=== PATIENT | female | born 1990 | race Caucasian/White ===

== ENCOUNTER → 2020-10-08 13:52 | Outpatient (BNVA) | payer OTHER, SELFPAY | PROVIDERS: PCP Internal Medicine ==

== ENCOUNTER 2020-10-28 07:32 | Day surgery (SDC) | payer OTHER, SELFPAY ==
[2020-10-18 16:51] VITALS: BMI 33.2
--- NOTE | 2020-10-25 14:03 | HO.ANESPROP2 ---
Documented by User: Helen Acevedo NP 10/25/20 14:21 HPI - Anesthesia Eval Consult details Narrative: 29yo F for Insertion Suprapubic Tube Spina bifida. Paraplegia. Chiari malformation with OUTREACH MANAGER shunt. No recent neuro imaging. [facility] ED or admission for atypical CP/UTI. Cardiac etiology r/o. Case reviewed with Dr Garcia. OK to proceed. [facility], [facility] Active Problems Active Problems: All Active Problems (Updated 10/21/20 @ 11:38 by Ann Landin RN) Neurogenic bladder (Acute) Past Medical History Medical History (Updated 10/21/20 @ 11:38 by Ann Landin RN) Able to perform intermittent urethral self-catheterization Arnold-Chiari malformation Diabetes López catheter present Hepatic steatosis History of infection with vancomycin resistant Enterococcus (VRE) Hx of exertional chest pain Nausea Neurogenic bladder Paraplegia Recurrent UTI (urinary tract infection) Scoliosis, congenital Sleep apnea in adult Spina bifida Splenomegaly Surgical History Surgical History (Updated 10/18/20 @ 16:53 by Ann Ladnin RN) Hx of cholecystectomy Hx of ovarian cystectomy Hx of spinal surgery S/P OUTREACH MANAGER shunt Social History Social History Patient Tobacco Use Status: Never used Tobacco Are you DNR?: No Advance Directives: No Advance Directives Information Provided: No Advance Directives on File: No Patient : No FDLMP: 09/16/2020 Meds Allergies Allergy/AdvReac Type Severity Reaction Status Date / Time Latex, Natural Rubber AdvReac Intermediate itchy Verified 10/18/20 16:36 Home Medications Medication Instructions Recorded Confirmed Last Taken Type baclofen 10 mg tablet 10 mg PO TID 10/08/20 10/28/20 10/28/20 06:00 History cholecalciferol (vitamin D3) 10 10 mcg PO DAILY 10/08/20 10/18/20 Unknown History mcg (400 unit) capsule dulaglutide 0.75 mg/0.5 mL 0.75 mg SUBCUT QWEEK 10/08/20 10/18/20 Unknown History subcutaneous pen injector glipizide 5 mg tablet 5 mg PO DAILY 10/08/20 10/18/20 Unknown History multivitamin 1 tab PO DAILY 10/08/20 10/18/20 Unknown History ondansetron 4 mg disintegrating 4 mg PO Q8H 10/08/20 10/18/20 Unknown History tablet oxycodone 5 mg tablet 5 mg PO Q6H PRN 10/18/20 10/18/20 Unknown History Exam Exam Date and Time: October 25, 2020 1403 Height,Weight and Vital Signs: Height 5 ft Weight 77.111 kg Pertinent Lab Results Pertinent Lab Results: 10/01/20 WBC 14.6 (H) HGB 10.3 (L) HCT 35.1 PLT 469 (H) NA 136 K 4.1 CL 101 CO2 26 BUN 9 Creat 0.29 (L) Ca 8.8 Narrative Narrative: EKG 09/2020 NSR with SA @ 76 Assessment and Plan Assessment Anesthesia Assessment: Chart Reviewed Documented by User: Rosalva Mccoy MD 10/28/20 09:15 PMF Past Medical History Medical History (Updated 10/21/20 @ 11:38 by Ann Landin, TRAM) Able to perform intermittent urethral self-catheterization Arnold-Chiari malformation Diabetes López catheter present Hepatic steatosis History of infection with vancomycin resistant Enterococcus (VRE) Hx of exertional chest pain Nausea Neurogenic bladder Paraplegia Recurrent UTI (urinary tract infection) Scoliosis, congenital Sleep apnea in adult Spina bifida Splenomegaly Family History Family history of problems with anesthesia: No Surgical History Surgical History (Updated 10/18/20 @ 16:53 by Ann Landin, RN) Hx of cholecystectomy Hx of ovarian cystectomy Hx of spinal surgery S/P OUTREACH MANAGER shunt History of Problems with Anesthesia: No Social History Social History Patient Tobacco Use Status: Never used Tobacco Are you DNR?: No Advance Directives: No Advance Directives Information Provided: No Advance Directives on File: No Patient : No FDLMP: 09/16/2020 Meds Allergies Allergy/AdvReac Type Severity Reaction Status Date / Time Latex, Natural Rubber AdvReac Intermediate itchy Verified 10/18/20 16:36 Home Medications Medication Instructions Recorded Confirmed Last Taken Type baclofen 10 mg tablet 10 mg PO TID 10/08/20 10/28/20 10/28/20 06:00 History cholecalciferol (vitamin D3) 10 10 mcg PO DAILY 10/08/20 10/18/20 Unknown History mcg (400 unit) capsule dulaglutide 0.75 mg/0.5 mL 0.75 mg SUBCUT QWEEK 10/08/20 10/18/20 Unknown History subcutaneous pen injector glipizide 5 mg tablet 5 mg PO DAILY 10/08/20 10/18/20 Unknown History multivitamin 1 tab PO DAILY 10/08/20 10/18/20 Unknown History ondansetron 4 mg disintegrating 4 mg PO Q8H 10/08/20 10/18/20 Unknown History tablet oxycodone 5 mg tablet 5 mg PO Q6H PRN 10/18/20 10/18/20 Unknown History Exam Height,Weight and Vital Signs: Height 5 ft Weight 77.111 kg Vital Signs Temp Pulse Resp BP Pulse Ox 10/28/20 08:02 98.3 F 90 16 115/91 H 97 Pertinent Lab Results Pertinent Lab Results: 10/01/20 WBC 14.6 (H) HGB 10.3 (L) HCT 35.1 PLT 469 (H) NA 136 K 4.1 CL 101 CO2 26 BUN 9 Creat 0.29 (L) Ca 8.8 Lab Results 10/28/20 Range/Units 08:09 POC Glucose 289 H (60-115) mg/dL Airway Mallampati Class: III TM Dist: >3cm (Short fat neck. In flexion) Neck ROM: Limited Heart: RRR Lungs: CTAB Assessment and Plan Assessment Anesthesia Assessment: Anesthesia Plan Discussed Final Anesthetic Review Family History of Problems with Anesthesia: No History of Problems with Anesthesia: No NPO: Yes ASA Class: III Final Preanesthetic Review: No Changes in Pt Med Stat, Meds/Allgs Chart Reviewed, Consent Obtained/Reviewed and Anes Risks/Benef Reviewed Patient Risk: Intermediate Procedure Risk: Low Assessment/Block/Sedation in SS: Assess/Block/Sedation-SS Anesthetic Plan Anesthetic Plan: GA Disposition: Standard PACU
[2020-10-28] VITALS (7 sets, daily range): BP systolic 115–121; BP diastolic 78–91; PULSE 84–91; RESP 10–16; TEMP 36.8–37.1; O2SAT 97–99
[2020-10-28] MEDS: levoFLOXacin 500 MG TABLET PO (08:07)
[2020-10-28 08:14] LABS: Glucose, Whole Blood 289 mg/dL (60-115)
[2020-10-28] MEDS: Lactated Ringers 1,000 ML 100 ML IVCONT (08:51)
--- NOTE | 2020-10-28 09:21 | MHC.SHP ---
Pre-Procedural Eval Section A Date of Service: 10/28/20 Section B Chief Complaint: Dysfunction of Bladder Details of Present Illness: longstanding neurogenic bladder Relevant Family History (Specify if Yes): No Relevant Social History: None Present Medications: see Short Stay Collaborative assessment Medical History: Significant History History of Previous Operations: No relevant previous surgery Allergies: Allergies Allergy/AdvReac Type Severity Reaction Status Date / Time Latex, Natural Rubber AdvReac Intermediate itchy Verified 10/18/20 16:36 Review of Systems Sugical H&P ROS: Negative: Constitution, Cardiovascular, Respiratory, Neurological, Psychiatric, Hem-Onc, Allergic/Immunologic, Gastrointestinal, Genitourinary, Musculoskeletal, Integumentary, Endocrine and Eyes/Ears/Nose/Throat Exam Surgical H&P Exam: Normal: HEENT, Normal: Heart, Normal: Lungs, Normal: Extremities, Normal: Abdomen, Normal: Skin and Normal: Neurological Plan Diagnosis/Plan: Unchanged (Cystoscopy with suprapubic tube placement) I have reviewed the history and physical and performed a pertinent physical examination on my patient. No changes have occurred unless specified.
--- NOTE | 2020-10-28 09:58 | P.OP_ITS ---
Operative Note Operative Note Date of Service: 10/28/20 Narrative: PreOperative Diagnosis:?neurogenic bladder Post Operative Diagnosis:?neurogenic bladder Procedure:? 1. Cystoscopy 2. Suprapubic tube placement Surgeon: Dr Jeff Verduzco Anesthesia:?Sedation plus local Indications for procedure: A pleasant 29-year-old with spina bifida. Significant spinal deformation with neurogenic bladder and recurrent UTIs with incomplete emptying. Procedure: After informed consent was verified the patient was brought to the operating room and placed in a supine position.? Anesthesia was administered per protocol. The patient was placed in a modified dorsal lithotomy position and prepped and draped in a sterile fashion. A safety pause was performed confirming patient identity, procedure and antibiotics. A 22 Mongolian cystoscope was inserted per urethra. Bladder was examined in its entirety. No abnormalities seen. Air bubble was located at the dome of the bladder. A finder needle was inserted 2 fingerbreaths above the symphysis pubis on the abdomen into the bladder.? The needle was visualized in the bladder via cystoscopy. Local anesthetic was infiltrated subcutaneously around the needle introduction site. A small, 1cm horizontal incision was made.? A trocar introducer was advanced through the abdominal wall into the bladder under visualization. The obturator was removed and a 16 Fr tapia catheter placed. 7cc was used to inflate the balloon. The external portion of the trocar was removed. Dressing was placed, the bladder was emptied, and a drainage bag was attached. The patient tolerated the procedure and was transferred in stable condition to the recovery area. Suprapubic tube will be changed in 1 month with a follow-up office visit.
[2020-10-28] MEDS: oxyCODONE HCl Immed Release 5 MG TABLET PO (10:36)
== END 2020-10-28 11:30 | disposition home or self-care (01) ==
PROVIDERS: PCP Internal Medicine; Visit Provider Urology
PROC: (CPT 51102; principal; 2020-10-28 09:00)
DX: N31.9 Neuromuscular dysfunction of bladder, unspecified (principal); Q07.01 Arnold-Chiari syndrome with spina bifida; N39.0 Urinary tract infection, site not specified; R33.9 Retention of urine, unspecified; G82.20 Paraplegia, unspecified; Z98.2 Presence of cerebrospinal fluid drainage device; Z99.3 Dependence on wheelchair; E11.9 Type 2 diabetes mellitus without complications; Z79.84 Long term (current) use of oral hypoglycemic drugs
CPT/HCPCS: 51040; 82947; J2370; J3010

== ENCOUNTER → 2020-11-28 15:12 | Outpatient (BNVA) | payer OTHER, SELFPAY | PROVIDERS: PCP Internal Medicine; Visit Provider Urology | DX: N31.9 Neuromuscular dysfunction of bladder, unspecified (principal) | CPT/HCPCS: 51705; 99212 ==

== ENCOUNTER → 2020-12-27 14:11 | Outpatient (BNVA) | payer OTHER, SELFPAY | PROVIDERS: PCP Internal Medicine; Visit Provider Urology | DX: N31.9 Neuromuscular dysfunction of bladder, unspecified (principal) | CPT/HCPCS: 51705 ==

== ENCOUNTER → 2021-01-28 14:09 | Outpatient (BNVA) | payer OTHER, SELFPAY | PROVIDERS: PCP Internal Medicine; Visit Provider Urology | DX: N31.9 Neuromuscular dysfunction of bladder, unspecified (principal) | CPT/HCPCS: 51705 ==

== ENCOUNTER → 2021-02-26 14:19 | Outpatient (BNVA) | payer OTHER, SELFPAY | PROVIDERS: PCP Internal Medicine; Visit Provider Urology | DX: N31.9 Neuromuscular dysfunction of bladder, unspecified (principal) | CPT/HCPCS: 51705 ==

== ENCOUNTER → 2021-03-27 15:06 | Outpatient (BNVA) | payer OTHER, SELFPAY | PROVIDERS: PCP Internal Medicine; Visit Provider Urology | DX: N31.9 Neuromuscular dysfunction of bladder, unspecified (principal) | CPT/HCPCS: 51705 ==

== ENCOUNTER → 2021-04-24 15:21 | Outpatient (BNVA) | payer OTHER, SELFPAY | PROVIDERS: PCP Internal Medicine; Visit Provider Urology | DX: N31.9 Neuromuscular dysfunction of bladder, unspecified (principal) | CPT/HCPCS: 51705 ==

== ENCOUNTER → 2021-11-28 14:11 | Outpatient (BNVA) | payer OTHER, SELFPAY | PROVIDERS: PCP Internal Medicine; Visit Provider Urology | DX: N31.9 Neuromuscular dysfunction of bladder, unspecified (principal) | CPT/HCPCS: 51705; 51710; 99212 ==

== ENCOUNTER → 2021-12-31 14:04 | Outpatient (BNVA) | payer OTHER, SELFPAY | PROVIDERS: PCP Internal Medicine; Visit Provider Urology | DX: N31.9 Neuromuscular dysfunction of bladder, unspecified (principal) | CPT/HCPCS: 51705 ==

== ENCOUNTER → 2022-01-22 10:44 | Outpatient (BNVA) | payer OTHER, SELFPAY | PROVIDERS: PCP Internal Medicine; Visit Provider Urology | DX: N31.9 Neuromuscular dysfunction of bladder, unspecified (principal) | CPT/HCPCS: 51705 ==

== ENCOUNTER → 2022-02-19 13:14 | Outpatient (BNVA) | payer OTHER, SELFPAY | PROVIDERS: PCP Internal Medicine; Visit Provider Urology | DX: Z43.5 Encounter for attention to cystostomy (principal); N31.9 Neuromuscular dysfunction of bladder, unspecified | CPT/HCPCS: 51705 ==

== ENCOUNTER → 2022-03-19 13:18 | Outpatient (BNVA) | payer OTHER, SELFPAY | PROVIDERS: PCP Internal Medicine; Visit Provider Urology | DX: N31.9 Neuromuscular dysfunction of bladder, unspecified (principal) | CPT/HCPCS: 51705 ==

== ENCOUNTER → 2022-03-27 15:04 | Outpatient (BNVA) | payer OTHER, SELFPAY | PROVIDERS: PCP Internal Medicine; Visit Provider Urology | DX: N99.518 Other cystostomy complication (principal); L92.9 Granulomatous disorder of the skin and subcutaneous tissue, unspecified; N31.9 Neuromuscular dysfunction of bladder, unspecified | CPT/HCPCS: 99212 ==

== ENCOUNTER → 2022-04-16 14:32 | Outpatient (BNVA) | payer OTHER, SELFPAY | PROVIDERS: PCP Internal Medicine; Visit Provider Urology | DX: L92.9 Granulomatous disorder of the skin and subcutaneous tissue, unspecified (principal); N31.9 Neuromuscular dysfunction of bladder, unspecified; Z46.6 Encounter for fitting and adjustment of urinary device; Z96.0 Presence of urogenital implants | CPT/HCPCS: 99212 ==

== ENCOUNTER → 2022-05-14 13:45 | Outpatient (BNVA) | payer OTHER, SELFPAY | PROVIDERS: PCP Internal Medicine; Visit Provider Urology | DX: Z43.5 Encounter for attention to cystostomy (principal); N31.9 Neuromuscular dysfunction of bladder, unspecified | CPT/HCPCS: 51705 ==

== ENCOUNTER → 2022-05-18 15:02 | Outpatient (BNVA) | payer OTHER, SELFPAY | PROVIDERS: PCP Internal Medicine; Visit Provider Urology | DX: Z43.5 Encounter for attention to cystostomy (principal); N31.9 Neuromuscular dysfunction of bladder, unspecified | CPT/HCPCS: 51700 ==

== ENCOUNTER → 2022-06-11 13:23 | Outpatient (BNVA) | payer OTHER, SELFPAY | PROVIDERS: PCP Internal Medicine; Visit Provider Urology | DX: N31.9 Neuromuscular dysfunction of bladder, unspecified (principal) | CPT/HCPCS: 51705 ==

== ENCOUNTER → 2022-07-09 15:00 | Outpatient (BNVA) | payer OTHER, SELFPAY | PROVIDERS: PCP Internal Medicine; Visit Provider Urology | DX: Z43.5 Encounter for attention to cystostomy (principal); N31.9 Neuromuscular dysfunction of bladder, unspecified | CPT/HCPCS: 51700; 51705 ==

== ENCOUNTER → 2022-08-06 14:24 | Outpatient (BNVA) | payer OTHER, SELFPAY | PROVIDERS: PCP Internal Medicine; Visit Provider Urology | DX: N31.9 Neuromuscular dysfunction of bladder, unspecified (principal) | CPT/HCPCS: 51705 ==

== ENCOUNTER → 2022-09-03 14:22 | Outpatient (BNVA) | payer OTHER, SELFPAY | PROVIDERS: PCP Internal Medicine; Visit Provider Urology | DX: N31.9 Neuromuscular dysfunction of bladder, unspecified (principal) | CPT/HCPCS: 51705 ==

== ENCOUNTER → 2022-10-01 15:10 | Outpatient (BNVA) | payer OTHER, SELFPAY | PROVIDERS: PCP Internal Medicine; Visit Provider Urology | DX: N31.9 Neuromuscular dysfunction of bladder, unspecified (principal) | CPT/HCPCS: 51705 ==

== ENCOUNTER 2022-10-21 14:46 | Outpatient (AMB) | payer OTHER, SELFPAY ==
--- NOTE | 2022-10-21 15:25 | A.OFFVIS_ITS ---
Intake Intake Visit Reasons: 6m follow up/STP change Intake Note: Patient is present for Follow Up Urology Med: Oxybutynin Antibiotic Allergy: None Blood Thinner: None Pharmacy: [facility] Allergies Latex, Natural Rubber Adverse Reaction (Intermediate, Verified 11/27/21 16:20) itchy HPI HPI Comments History of Present Illness Details Norma is a very pleasant female. 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 Use of overnight bag for drainage. Will start methenamine with vitamin-C for suppression They are extremely happy with the current situation and their ability to manage the daughters bladder emptying FORMERLY [facility] Medical History Able to perform intermittent urethral self-catheterization Arnold-Chiari malformation Diabetes López catheter present Hepatic steatosis History of infection with vancomycin resistant Enterococcus (VRE) Hx of exertional chest pain Nausea Neurogenic bladder Paraplegia Recurrent UTI (urinary tract infection) Scoliosis, congenital Sleep apnea in adult Spina bifida Splenomegaly Surgical History Hx of cholecystectomy Hx of ovarian cystectomy Hx of spinal surgery S/P K 9 POLICE OFFICER shunt Social History Patient Tobacco Use Status: Never used Tobacco Review of Systems Const Denies chills and Denies fever(s) Card Reports no additional complaints and Denies syncope Resp Denies cough GI Denies abdominal pain and Denies heartburn Reports as per HPI and Denies change in libido Neuro Denies syncope Psych Denies change in libido Endo Denies change in libido Physical Exam Const General: cooperative, healthy appearing, comfortable and no acute distress Orientation/consciousness: patient oriented x3 HEENT Face and sinus: Yes normal facial exam Mouth: moist mucous membranes Neck Neck: Yes normal visual inspection, Yes full ROM and Yes trachea midline Chest Chest palpation & inspection: normal inspection of the chest Resp Effort & Inspection: normal respiratory effort, able to speak in complete sentences and no respiratory distress GI Inspection: Yes normal to inspection Back/Spine/Pelvis Cervical Spine: normal cervical lordosis Thoracic/Lumbar Spine: thoracic and lumbar spine normal to inspection Skin General skin exam: no rashes or lesions noted Neuro General: patient oriented x3, gait normal, tone normal and moves all extremities Extrem General: Yes normal to inspection and Yes capillary refill normal Office Procedures Bladder/Catheter Procedure Details: 18 fr pooja cath 7.5 ml balloon replaced with new 18 fr pooja cath w 7.5 mls balloon and blue plug. Pt tolerated exchange well. 08122-Rxzbus of bladder tube Procedure code (CPT) selection complete Assessment & Plan Assessment & Plan (1) Neurogenic bladder: Comment: Suprapubic tube placed October 2020 Code(s): N31.9 - Neuromuscular dysfunction of bladder, unspecified Plan Continue monthly changes, six-month follow-up Orders: Orders AMB Bladder/Catheter Procedure Today N31.9 - Neuromuscular dysfunction of bladder, unspecified Patient Instructions: Imaging studies, laboratory and physical exam results were discussed and reviewed in detail. No major barriers to patient understanding were identified. An opportunity to ask questions regarding the treatment plan was provided. All questions were answered. The patient expressed understanding and agreement with the above treatment plan. The patient is aware they should contact our office by phone for worsening of their current condition or the appearance of new urologic symptoms. Compliance is encouraged with any medications and followup testing that is ordered. It is a privilege to participate in the urologic care of your patient. If you have any questions or concerns regarding treatment for the above conditions, or other urologic issues, please do not hesitate to contact me. The office telephone contact is [phone]. This note is constructed using voice recognition software. While every effort has been made to ensure accuracy adaptive physical education specialist errors may have been included. Yours sincerely, Dr Jeff Verduzco MD, [facility] - Urology Providers of Expert, Compassionate Care for the Genitourinary System Coding Level of Care Code Est Pt Level 3 (49524) Diagnoses Neurogenic bladder N31.9 CPT Codes Bladder/Catheter Procedure - CPT: 64092-Cquyyq of bladder tube ([id number])
== END 2022-10-21 15:44 | disposition home or self-care (01) ==
PROVIDERS: PCP Internal Medicine; Visit Provider Urology
DX: N31.9 Neuromuscular dysfunction of bladder, unspecified (principal)
CPT/HCPCS: 51705; 99213

== ENCOUNTER → 2022-10-21 14:46 | Outpatient (BNVA) | payer OTHER, SELFPAY | PROVIDERS: Visit Provider Urology | DX: N31.9 Neuromuscular dysfunction of bladder, unspecified (principal) | CPT/HCPCS: 51705; 99212 ==

== ENCOUNTER → 2022-11-18 15:26 | Outpatient (BNVA) | payer OTHER, SELFPAY | PROVIDERS: PCP Internal Medicine; Visit Provider Urology | DX: N31.9 Neuromuscular dysfunction of bladder, unspecified (principal) | CPT/HCPCS: 51705 ==

== ENCOUNTER → 2022-12-16 15:52 | Outpatient (BNVA) | payer OTHER, SELFPAY | PROVIDERS: PCP Internal Medicine; Visit Provider Urology | DX: N31.9 Neuromuscular dysfunction of bladder, unspecified (principal) | CPT/HCPCS: 51705 ==

== ENCOUNTER → 2023-01-13 16:00 | Outpatient (BNVA) | payer OTHER, SELFPAY | PROVIDERS: PCP Internal Medicine; Visit Provider Urology | DX: N31.9 Neuromuscular dysfunction of bladder, unspecified (principal) | CPT/HCPCS: 51705 ==

== ENCOUNTER → 2023-02-10 15:08 | Outpatient (BNVA) | payer OTHER, SELFPAY | PROVIDERS: PCP Internal Medicine; Visit Provider Urology | DX: N13.9 Obstructive and reflux uropathy, unspecified (principal) | CPT/HCPCS: 51705 ==

== ENCOUNTER → 2023-03-10 15:22 | Outpatient (BNVA) | payer OTHER, SELFPAY | PROVIDERS: PCP Internal Medicine; Visit Provider Urology | DX: N31.9 Neuromuscular dysfunction of bladder, unspecified (principal) | CPT/HCPCS: 51705 ==

== ENCOUNTER → 2023-04-07 15:22 | Outpatient (BNVA) | payer OTHER, SELFPAY | PROVIDERS: PCP Internal Medicine; Visit Provider Urology | DX: Z43.5 Encounter for attention to cystostomy (principal); N31.9 Neuromuscular dysfunction of bladder, unspecified | CPT/HCPCS: 51705 ==

== ENCOUNTER 2023-04-21 | Outpatient (REF) | payer OTHER, SELFPAY ==
[2023-04-22 15:29] LABS: Appearance Urine Cloudy; Color Urine Dark Yellow; Glucose Urine UA 500 mg/dL (Negative); Leukocyte Esterase Urine Moderate (2+) (Negative); Nitrite Urine Positive (Negative); PH 7.5 (5.0-9.0); Specific Gravity - Urine 1.025 (1.005-1.025); UMIC TRIGGER UA YES; Urine Blood Large (3+) (Negative); Urine Ketones Negative (Negative); Urine Protein 30 (1+) mg/dL (Neg-Trace)
[2023-04-22 15:34] LABS: Bacteria Urine 4+ (None Seen); Hyaline Casts Urine 0-2 /LPF (0-2); RBC Urine >20 /HPF (0-2); Squamous Epithelial Cell Urine 0-2 /HPF (0-2); WBC Urine >50 /HPF (0-5)
== END 2023-04-21 00:01 | disposition home or self-care (01) ==
LOC: HO.LNP
PROVIDERS: Visit Provider Urology
DX: N31.9 Neuromuscular dysfunction of bladder, unspecified (principal)
CPT/HCPCS: 81001; 87086; 87088; 87186

== ENCOUNTER → 2023-04-29 14:20 | Outpatient (BNVA) | payer OTHER, SELFPAY | PROVIDERS: PCP Internal Medicine; Visit Provider Urology | DX: N31.9 Neuromuscular dysfunction of bladder, unspecified (principal) | CPT/HCPCS: 51705 ==

== ENCOUNTER → 2023-06-02 15:26 | Outpatient (BNVA) | payer OTHER, SELFPAY | PROVIDERS: PCP Internal Medicine; Visit Provider Urology | DX: N31.9 Neuromuscular dysfunction of bladder, unspecified (principal) | CPT/HCPCS: 51705 ==

== ENCOUNTER → 2023-06-30 15:42 | Outpatient (BNVA) | payer OTHER, SELFPAY | PROVIDERS: PCP Internal Medicine; Visit Provider Urology | DX: N31.9 Neuromuscular dysfunction of bladder, unspecified (principal) | CPT/HCPCS: 51705 ==

== ENCOUNTER 2023-07-28 15:12 | Outpatient (AMB) | payer OTHER, SELFPAY ==
--- NOTE | 2023-07-28 15:20 | A.OFFVIS_ITS ---
Intake Visit Reasons: 6m/cath change Intake Note: Patient is present for Follow Up Cath Change Urology Med: None Antibiotic Allergy: None Blood Thinner: None Pharmacy: [facility] Tester Wafer Substrate Required: No Accompanied by: Self / Same As Patient Allergies Latex, Natural Rubber Adverse Reaction (Intermediate, Verified 07/28/23 15:33) itchy Medication List - Last Reconciled 07/28/23 by Jeff Verduzco MD baclofen 10 mg PO TID cholecalciferol (vitamin D3) 10 mcg PO DAILY drainage bag ([employer] Urinary Drain Bag) As directed dulaglutide 0.75 mg subcut QWEEK glipizide 5 mg PO DAILY multivitamin 1 tab PO DAILY nitrofurantoin monohyd/m-cryst 100 mg (Macrobid) 100 mg PO BID 10 days ondansetron 4 mg PO Q8H oxybutynin chloride ER 5 mg PO DAILY 90 days oxycodone 5 mg PO Q6H PRN polyhexam biguan-gauze bandage 0.2 %- 2 X 2 apply one each evening for 8 hrs povidone-iodine 10% 1 appl topical BID PRN sulfamethoxazole-trimethoprim 400-80 mg (Bactrim) 1 tab PO DAILY 90 days sulfamethoxazole-trimethoprim 400-80 mg (Bactrim) 1 tab orally on days of catheter change; syringe (disposable) As directed for daily SP tube irrigation water for irrigation, sterile 1 irrig irrigation DAILY 30 days HPI Comments Details: Norma is a very pleasant female. 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 Use of overnight bag for drainage. Will start methenamine with vitamin-C for suppression They are extremely happy with the current situation and their ability to manage the daughters bladder emptying PFSH Medical History Splenomegaly Hepatic steatosis Hx of exertional chest pain López catheter present Scoliosis, congenital Spina bifida Sleep apnea in adult Paraplegia Arnold-Chiari malformation Able to perform intermittent urethral self-catheterization Nausea Diabetes History of infection with vancomycin resistant Enterococcus (VRE) Recurrent UTI (urinary tract infection) Neurogenic bladder Surgical History Hx of spinal surgery Hx of cholecystectomy Hx of ovarian cystectomy S/P CLAIMS VICE PRESIDENT shunt Social History Patient Tobacco Use Status: Never used Tobacco Review of Systems Const Denies chills and Denies fever(s) Card Reports no additional complaints and Denies syncope Resp Denies cough GI Denies abdominal pain and Denies heartburn Reports as per HPI and Denies change in libido Neuro Denies syncope Psych Denies change in libido Endo Denies change in libido Physical Exam Const General: cooperative, healthy appearing, comfortable and no acute distress Orientation/consciousness: patient oriented x3 HEENT Face and sinus: Yes normal facial exam Mouth: moist mucous membranes Neck Neck: Yes normal visual inspection, Yes full ROM and Yes trachea midline Chest Chest palpation & inspection: normal inspection of the chest Resp Effort & Inspection: normal respiratory effort, able to speak in complete sentences and no respiratory distress GI Inspection: Yes normal to inspection Back/Spine/Pelvis Cervical Spine: normal cervical lordosis Thoracic/Lumbar Spine: thoracic and lumbar spine normal to inspection Skin General skin exam: no rashes or lesions noted Neuro General: patient oriented x3, gait normal, tone normal and moves all extremities Extrem General: Yes normal to inspection and Yes capillary refill normal Office Procedures Bladder/Catheter Procedure Details: 18 fr pooja cath 7.5 ml balloon replaced with new 18 fr pooja cath w 7.5 mls balloon and blue plug. Pt tolerated exchange well. next change in 4 weeks 32611-[id number] of bladder tube Procedure code (CPT) selection complete Assessment & Plan Assessment & Plan (1) Neurogenic bladder: Comment: Suprapubic tube placed October 2020 Code(s): N31.9 - Neuromuscular dysfunction of bladder, unspecified Category: Medical Plan Six-month follow-up nurse-practitioner Continue with monthly catheter change in Patient Instructions: Imaging studies, laboratory and physical exam results were discussed and reviewed in detail. No major barriers to patient understanding were identified. An opportunity to ask questions regarding the treatment plan was provided. All questions were answered. The patient expressed understanding and agreement with the above treatment plan. The patient is aware they should contact our office by phone for worsening of their current condition or the appearance of new urologic symptoms. Compliance is encouraged with any medications and followup testing that is ordered. It is a privilege to participate in the urologic care of your patient. If you have any questions or concerns regarding treatment for the above conditions, or other urologic issues, please do not hesitate to contact me. The office telephone contact is [phone]. This note is constructed using voice recognition software. While every effort has been made to ensure accuracy manager office errors may have been included. Yours sincerely, Dr Jeff Verduzco MD, [facility] - Urology Providers of Expert, Compassionate Care for the Genitourinary System Coding Level of Care Code Est Pt Level 3 (65309) Diagnoses Neurogenic bladder N31.9 CPT Codes Bladder/Catheter Procedure - CPT: 94437-Nrtzpq of bladder tube ([id number])
--- OUTSIDE RECORDS SUMMARY | 2023-07-28 18:27 | XMS_ITS | Continuity of Care Document ---
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 Role Phone Jacob Carter MD Primary Care Physician [phone] Encounter [facility] Date(s): 06/19/23 - 07/19/23 [facility] [address] [place] [phone] Allergies, Adverse Reactions, Alerts Substance Reaction Severity Status Latex Rash precautions Active MetFORMIN Hydrochloride diarrhea Acti ve Immunizations Given and Recorded Vaccine Date Status Refusal Reason SARS-CoV-2 (COVID-19) mRNA BNT-162b2 vac 02/17/21 Given SARS-CoV-2 (COVID-19) mRNA BNT-162b2 vac 07/19/20 Given SARS-CoV-2 (COVID-19) mRNA BNT-162b2 vac 06/28/20 Given influenza virus vaccine, inactivated 02/17/21 Give n influenza virus vaccine, inactivated 02/20/19 Give n influenza virus vaccine, inactivated 1 12/03/16 Gi tre influenza virus vaccine, inactivated 11/20/16 Give n influenza virus vaccine, inactivated 04/17/16 Give n influenza virus vaccine, inactivated 04/19/14 Give n influenza virus vaccine, inactivated 01/11/12 Give n influenza virus vaccine, inactivated 01/06/11 Give n influenza virus vaccine, inactivated 02/16/06 Give n tetanus/diphtheria/pertussis, acel(Tdap) 08/08/18 Given Meningococcal Conjugate Vaccine 01/11/12 Given Meningococcal Conjugate Vaccine 2 12/14/06 Given pneumococcal 23-valent vaccine 02/18/11 Given Varicella Virus Vaccine 10/07/09 Given Varicella Virus Vaccine 3 11/29/98 Given Human Papillomavirus Vaccine 10/07/09 Given Human Papillomavirus Vaccine 4 07/24/08 Given Human Papillomavirus Vaccine 5 12/14/06 Given Tet/Diphth/Acel, Pertussis (oldterm) 6 12/14/06 Gi tre Diphth-Tetanus Toxoids Adsorbed(oldterm) 7 08/08/04 Given Measles/Mumps/Rubella Virus Vaccine 8 01/25/97 Giv en Measles/Mumps/Rubella Virus Vaccine 9 02/06/94 Giv en Diphth/Pertussis, Whl Cell/Tet(oldterm) 10 01/25/97 Given Diphth/Pertussis, Whl Cell/Tet(oldterm) 11 11/17/94 Given Diphth/Pertussis, Whl Cell/Tet(oldterm) 12 06/23/93 Given Diphth/Pertussis, Whl Cell/Tet(oldterm) 13 05/01/93 Given Diphth/Pertussis, Whl Cell/Tet(oldterm) 14 02/25/93 Given Poliovirus Vaccine, Inactivated 01/25/97 Given Poliovirus Vaccine, Inactivated 06/23/93 Given Poliovirus Vaccine, Inactivated 05/01/93 Given Poliovirus Vaccine, Inactivated 02/25/93 Given Haemophilus B Conj Vaccine (oldterm) 15 04/08/94 G iven Haemophilus B Conj Vaccine (oldterm) 16 06/23/93 G iven Haemophilus B Conj Vaccine (oldterm) 17 05/01/93 G iven Haemophilus B Conj Vaccine (oldterm) 18 02/25/93 G iven Hepatitis B Vaccine (old term) 19 08/26/93 Given Hepatitis B Vaccine (old term) 20 02/25/93 Given Hepatitis B Vaccine (old term) 21 01/18/93 Given 1Result Comment: [12/03/2016] [id number] 2Admin Note: VIS GIVEN---MENACTRA, SANOFI PASTEUR 3Admin Note: VARIVAX 4Admin Note: VIS Given 5Admin Note: VIS GIVEN 6Admin Note: vis given 7Admin Note: TD 8Admin Note: MMR 9Admin Note: MMR 10Admin Note: DTP 11Admin Note: DTP 12Admin Note: DTP 13Admin Note: DTP 14Admin Note: DTP 15Admin Note: HIB - exact date unknown 16Admin Note: HIB 17Admin Note: HIB 18Admin Note: HIB 19Admin Note: HEP B 20Admin Note: HEP B 21Admin Note: HEP B Medications 3 M paper tape 3 M paper tape, See Instructions, # 2 each, Refills 11, Tot. Refills 11, Maintenance, Dx:N31.9 Z93.51 Neurogenic bladder, suprapubic catheter Duration: lifetime, 11/02/22 13:59:00 EDT, Supply Start Date: 11/02/22 Status: Ordered ABD pads ABD pads, See Instructions, # 120 each, Refills 11, Tot. Refills 11, Maintenance, Dx: Supaprubic catheter Z96.0 duration: lifetime, 06/12/22 14:21:00 EDT, Supply Start Date: 06/12/22 Status: Ordered acetaminophen 500 mg oral tablet 2 tablet, By Mouth, 3 times a day, PRN NEEDED FOR PAIN, # 100 tablet, 5 Refills, Maintenance, 10/26/22 8:54:00 EDT, [facility], 160, cm, 09/21/22 13:39:00 EDT, Height, 74.6, kg, 11/11/21 22:01:00 EDT, Dry Weight Start Date: 10/26/22 Status: Ordered acetaminophen 500 mg tablet acetaminophen 500 mg tablet, 2, tablet, By Mouth, 3 times a day, PRN, # 100 tablet, 1 Refills, Maintenance, 05/07/23 11:28:00 EST, 160, cm, 04/05/23 11:34:00 EST, Height, 74.6, kg, 11/11/21 22:01:00 EDT, Dry Weight Start Date: 05/07/23 Status: Ordered albuterol CFC free 90 mcg/inh inhalation aerosol 1, puffs, Inhalation, 4 times a day, PRN, # 18 Gm, Refills 0, Tot. Refills 0, Maintenance, 07/13/2316:20:00 EDT, Aerosol, Route to Pharmacy Electronically, [id number], [facility] [place], [place] - [id number], 160, cm,... Start Date: 07/13/22 Status: Ordered Alcohol Pads Alcohol Pads, See Instructions, # 100 Unknown, 11 Refills, Maintenance, USE TO TEST FINGER STICK BLOOD SUGAR ONCE A DAY, 11/18/21 7:52:00 EDT, 160, cm, 11/12/21 7:40:00 EDT, Height, 74.6, kg, 11/11/21 22:01:00 EDT, Dry Weight Start Date: 11/18/21 Status: Ordered Alcohol Wipes See Instructions, # 200 each, Refills 11, Tot. Refills 11, Maintenance, Dx: diabetes E11.9 duration: lifetime use to clean area to test for BG up to three times a day as directed for diabetes., 11/26/22 14:11:00 EDT, Supply, 160, cm, 09/21/22 13:39:... Start Date: 11/26/22 Status: Ordered ammonium lactate 12% topical lotion See Instructions, APPLY TO THE AFFECTED AREA TOPICALLY DAILY AT BEDTIME, # 225 Gm, 11 Refills, Maintenance, 03/04/22 10:51:00 EST, [facility] [id number], 30, APPLY TO THE AFFECTED AREA TOPICALLY DAILY AT BEDTIME, 160, cm, 02/06... Start Date: 03/04/22 Status: Ordered bacitracin topical 500 u/gm ointment See Instructions, APPLY TO THE AFFECTED AREA TOPICALLY 3 (THREE) TIMES A DAY FOR 7 DAYS. APPLY TO affected SKIN, # 28 Gm, 0 Refills, Maintenance, 05/31/23 15:40:00 EDT, [facility] [id number], 14, APPLY TO THE AFFECTED AREA TOP... Start Date: 05/31/23 Status: Ordered baclofen 10 mg oral tablet 20 mg, 2, tablet, By Mouth, 3 times a day, # 180 tablet, Refills 3, Tot. Refills 3, Maintenance, 01/13/23 12:50:00 EST, Route to Pharmacy Electronically, [facility] [phone], Partial fill upon patient request if the prescrip... Start Date: 01/13/23 Stop Date: 05/13/23 Status: Ordered baclofen 10 mg tablet baclofen 10 mg tablet, 2, tablet, By Mouth, 3 times a day, # 180 tablet, 3 Refills, Maintenance, 05/10/23 16:56:00 EST, 160, cm, 04/05/23 11:34:00 EST, Height, 74.6, kg, 11/11/21 22:01:00 EDT, Dry Weight Start Date: 05/10/23 Status: Ordered Betadine 10% swab See Instructions, Dx: Pressure Ulcer L89.609 Duration: chronic, # 20 each, 0 Refills, Maintenance, 08/12/21 9:35:00 EDT, Partial fill upon patient request if the prescription is for a schedule II opioid drug. Start Date: 08/12/21 Status: Ordered BiPAP Equipment BiPAP 17/09, Maintenance, 05/19/22 21:23:00 EDT, Supply Start Date: 05/19/22 Status: Ordered bisacodyl 10 mg rectal suppository 1 supp, Rectally, Daily, PRN NEEDED FOR CONSTIPATION, # 15 supp, 2 Refills, Maintenance, 07/15/23 13:18:00 EDT, [facility] [id number], 160, cm, 05/11/23 15:09:00 EST, Height, 74.6, kg, 11/11/21 22:01:00 EDT, Dry Weight Start Date: 07/15/23 Status: Ordered bisacodyl 10 mg rectal suppository 1 supp = 10 mg, Rectally, Daily, PRN as needed for constipation, UNWRAP AND PLACE 1 SUPPOSITORY RECTALLY DAILY NEEDED FOR CONSTIPATION, # 15 supp, 2 Refills, Maintenance, 12/15/22 12:17:00 EDT, [facility] [id number], 160, c... Start Date: 12/15/22 Status: Ordered Catheter securement device Catheter securement device, See Instructions, # 2 each, Refills 11, Tot. Refills 11, Maintenance, Dx:N31.9 Z93.51 Neurogenic bladder, suprapubic catheter Duration: lifetime, 01/28/22 9:48:00 EST, Supply Start Date: 01/28/22 Status: Ordered Daily Multiple Vitamins oral tablet 1 tablet, By Mouth, Daily, # 30 tablet, 5 Refills, Maintenance, 02/18/23 18:51:00 EST, [facility] [id number], 30, 1 tablet By Mouth Daily, 160, cm, 12/15/22 13:14:00 EDT, Height, 74.6, kg, 11/11/21 22:01:00 EDT, Dry Weight Start Date: 02/18/23 Status: Ordered BABS HOLD IN PLACE CATHETER CARDONA [address] CATHETER CARDONA 316, See Instructions, # 3 each, Refills 11, Tot. Refills 11, Maintenance, Dx: neurogenic bladder N31.9 duration: lifetime, 06/12/22 14:26:00 EDT, Supply Start Date: 06/12/22 Status: Ordered diclofenac 1% topical gel = 2 Gm, Topically, 3 times a day, PRN NEEDED FOR KNEE PAIN, not to exceed 16grams/day/single joint OF lower extremities, # 100 Gm, 3 Refills, Maintenance, 06/30/23 16:37:00 EDT, [facility], 17, APPLY 2 grams TOPICALLY 3 (THREE) TIMES A DAY ... Start Date: 06/30/23 Status: Ordered Drainage urine back 4,000mL w hook Drainage urine back 4,000mL w hook, See Instructions, # 2 each, Refills 11, Tot. Refills 11, Maintenance, Dx:N31.9 Z93.51 Neurogenic bladder, suprapubic catheter Duration: lifetime, 01/28/22 9:47:00 EST, Supply Start Date: 01/28/22 Status: Ordered Dropless Micro EZ pen needles 3.5mm 34G Dropless Micro EZ pen needles 3.5mm 34G, See Instructions, # 30 each, Refills 11, Tot. Refills 11, Maintenance, Use daily to inject insulin for type 2 diabetes E11.9, 04/19/23 8:57:00 EST, Supply, 160, cm, 04/05/23 11:34:00 EST, Height, 74.6, kg, 09/0... Start Date: 04/19/23 Status: Ordered FreeStyle Lite Meter Kit FreeStyle Lite Meter Kit, See Instructions, # 1 kit, 0 Refills, Maintenance, use daily to check glucose for Type 2 Diabetes Mellitus, E11.9, 07/15/22 8:16:00 EDT, 160, cm, 07/13/22 16:57:00 EDT, Height, 74.6, kg, 11/11/21 22:01:00 EDT, Dry Weight Start Date: 07/15/22 Status: Ordered FreeStyle Lite Strips FreeStyle Lite Strips, See Instructions, # 50 Unknown, 11 Refills, Maintenance, USE TO TEST FINGER STICK BLOOD SUGAR ONCE A DAY, 11/19/22 8:26:00 EDT, 160, cm, 09/21/22 13:39:00 EDT, Height, 74.6, kg, 11/11/21 22:01:00 EDT, Dry Weight Start Date: 11/19/22 Status: Ordered FreeStyle Lite Strips FreeStyle Lite Strips, See Instructions, # 50 Unknown, 11 Refills, Maintenance, USE TO TEST FINGER STICK BLOOD SUGAR ONCE A DAY, 11/18/21 7:52:00 EDT, 160, cm, 11/12/21 7:40:00 EDT, Height, 74.6, kg,11/11/21 22:01:00 EDT, Dry Weight Start Date: 11/18/21 Status: Ordered glipiZIDE 10 mg oral tablet, extended release 1 tablet, By Mouth, 2 times a day, # 60 tablet, 2 Refills, Maintenance, 06/19/23 17:53:00 EDT, [place], [place] - [id number], 160, cm, 05/11/23 15:09:00 EST, Height, 74.6, kg, 11/11/21 22:01:00 EDT, Dry Weight Start Date: 06/19/23 Status: Ordered Holman wound cleanser Holman wound cleanser, See Instructions, # 1 each, Refills 11, Tot. Refills 11, Maintenance, Dx:N31.9 Z93.51 Neurogenic bladder, suprapubic catheter Duration: lifetime, 01/28/22 9:48:00 EST, Supply Start Date: 01/28/22 Status: Ordered hydrocortisone 2.5% topical ointment See Instructions, APPLY IN A thin film TO affected SKIN AND RUB in gently AND completely 3 (THREE) TIMES A DAY, # 28.35 Gm, 3 Refills, Maintenance, 05/31/23 15:39:00 EDT, [facility], 15, APPLY IN A thin film TO affected SKIN AND RUB in gently AND... Start Date: 05/31/23 Status: Ordered hydrocortisone 2.5% topical ointment 1 application, Topically, 3 times a day, apply in a thin film to the affected skin and rub in gently and completely, # 30 Gm, 3 Refills, Maintenance, 02/17/21 17:09:00 EST, Ointment, [facility], [facility] [id number], 1 application Topica... Start Date: 02/17/21 Status: Ordered Inject Ease Lancets 28 gauge Inject Ease Lancets 28 gauge, See Instructions, # 50 Unknown, 11 Refills, Maintenance, USE TO TEST FINGER STICK BLOOD SUGAR ONCE A DAY, 10/07/22 12:37:00 EDT, 160, cm, 09/21/22 13:39:00 EDT, Height, 74.6, kg, 11/11/21 22:01:00 EDT, Dry Weight Start Date: 10/07/22 Status: Ordered lactulose 10 gm/15 ml oral syrup 15 mL = 10 Gm, By Mouth, Daily, PRN as needed for constipation, # 480 mL, 0 Refills, Maintenance, 04/05/23 12:08:00 EST, Syrup, [facility] [id number], Partial fill upon patient request if the prescription is for a schedule II... Start Date: 04/05/23 Status: Ordered Lantus Solostar Pen 100 units/mL subcutaneous solution = 25 units, Subcutaneous Injection, Daily, # 10 mL, 2 Refills, Maintenance, 07/06/23 10:35:00 EDT, [facility] [id number], Please disregard order for 25 units., 160, cm, 05/11/23 15:09:00 EST, Height, 74.6, kg, 11/11/21 22:01:0... Start Date: 07/06/23 Status: Ordered Left knee neoprene sleeve Left knee neoprene sleeve, See Instructions, # 1 each, Refills 0, Tot. Refills 0, Maintenance, Use on left knee daily for chronic knee pain Dx chronic left knee pain (M25.562), history of left medialtibial plataeu fracture (S82.132A) Duration: life... Start Date: 09/21/22 Status: Ordered lidocaine 5% topical film See Instructions, Apply 1 patch to the affected area for 12 hours a day. Remove for 12 hours, # 30 patch, 3 Refills, Maintenance, 05/20/23 9:46:00 EDT, [facility], , Apply 1 patch to the affected area for 12 hours a day. Remove for 12 hours, 16... Start Date: 05/20/23 Status: Ordered Mounjaro 5 mg/0.5 mL subcutaneous solution = 5 mg, Subcutaneous Injection, Every week, rotate injection sites, # 4 each, 5 Refills, Maintenance, 07/06/23 10:53:00 EDT, Solution, [facility] [id number], Partial fill upon patient request if the prescription is for a sched... Start Date: 07/06/23 Status: Ordered Naphcon-A 0.025%-0.3% ophthalmic solution 1 drops, Eyes, Both, 4 times a day, # 15 mL, 1 Refills, Maintenance, 06/30/22 18:14:00 EDT, Solution, [facility] [id number], Partial fill upon patient request if the prescription is for a schedule II opioid drug., 1 drops Eyes... Start Date: 06/30/22 Status: Ordered Nitrofurantoin By Mouth, Maintenance, 05/19/22 8:41:00 EDT Start Date: 05/19/22 Status: Ordered Non woven sponges Non woven sponges, See Instructions, # 30 each, Refills 11, Tot. Refills 11, Maintenance, Dx:N31.9 Z93.51 Neurogenic bladder, suprapubic catheter Duration: lifetime, 01/28/22 9:48:00 EST, Supply Start Date: 01/28/22 Status: Ordered Normal saline flush syringes 60cc Normal saline flush syringes 60cc, See Instructions, # 10 each, Refills 11, Tot. Refills 11, Maintenance, Dx: Neurogenic bladder N31.9 Duration: lifetime, 04/05/23 15:43:00 EST, Supply Start Date: 04/05/23 Status: Ordered Nyamyc 100,000 units/g topical powder See Instructions, APPLY TO THE AFFECTED AREA TOPICALLY two (2) times a day, # 60 Gm, 11 Refills, Maintenance, 03/09/23 11:42:00 EST, [facility] [id number], 30, APPLY TO THE AFFECTED AREA TOPICALLY two (2) times a day, 160, cm,... Start Date: 03/09/23 Status: Ordered nystatin topical 960270 u/gm powder 1 application, Topically, 5 times a day, # 60 Gm, 2 Refills, Maintenance, 02/10/22 12:41:00 EST, Powder, [facility] - [place], [place] - [id number], Partial fill upon patient request if the prescription is for a schedule II opioid drug., 1 applica... Start Date: 02/10/22 Status: Ordered ondansetron 4 mg oral tablet, disintegrating See Instructions, place 1 TABLET UNDER THE TONGUE TO DISSOLVE EVERY 8 HOURS NEEDED FOR NAUSEA AND FOR VOMITING, # 20 each, 1 Refills, Maintenance, 05/31/23 15:39:00 EDT, [facility], 160, cm, 05/11/23 15:09:00 EST, Height, 74.6, kg, 11/11/21 22... Start Date: 05/31/23 Status: Ordered oxyCODONE 5 mg oral tablet See Instructions, TAKE 1 TABLET BY MOUTH 3 (THREE) TIMES A DAY NEEDED FOR moderate PAIN, # 84 tablet, Refills 0, Tot. Refills 0, Maintenance, 06/07/23 14:38:00 EDT, Instructions Replace Required Details, Route to Pharmacy Electronically, [facility]... Start Date: 06/07/23 Stop Date: 07/16/23 Status: Ordered oxyCODONE 5 mg oral tablet 5 mg, 1, tablet, By Mouth, 3 times a day, PRN, On narcotic contract at [facility], dx chronic back pain, chronic hip pain. May fill for less than prescribed., # 84 tablet, Refills 0, Tot. Refills 0, Maintenance, Pain , Moderate, 07/08/23 9:14:00 EDT, Route... Start Date: 07/08/23 Stop Date: 08/05/23 Status: Ordered Pen [place], 31 G x 8 mm BD Ultra Fine III See Instructions, # 50 each, Refills 3, Tot. Refills 3, Maintenance, Use daily to inject insulin for type 2 diabetes (E11.9)., 01/27/22 14:46:00 EST, Supply, 160, cm, 01/27/22 13:33:00 EST, Height, 74.6, kg, 11/11/21 22:01:00 EDT, Dry Weight Start Date: 01/27/22 Status: Ordered Potassium Chloride (Eqv-K-Tab) 20 mEq oral tablet, extended release 1 tablet = 20 mEq, By Mouth, Daily, # 7 tablet, 0 Refills, Maintenance, 09/15/22 7:58:00 EDT, [facility] [id number], Partial fill upon patient request if the prescription is for a schedule II opioid drug., 160, cm, 09/11/22 14... Start Date: 09/15/22 Stop Date: 09/22/22 Status: Ordered pregabalin 75 mg oral capsule 1 capsule = 75 mg, By Mouth, 2 times a day, # 60 capsule, 5 Refills, Maintenance, 04/05/23 11:55:00EST, Capsule, [facility] [id number], Partial fill upon patient request if the prescription is for a schedule II opioid drug. D... Start Date: 04/05/23 Status: Ordered Pressure relieving heal protector L foot Pressure relieving heal protector L foot, See Instructions, # 1 each, Refills 0, Tot. Refills 0, Maintenance, Dx: Pressure sore L heel L89.610 Duration: Lifetime, 12/12/21 10:03:00 EDT, Supply Start Date: 12/12/21 Status: Ordered Readi-Cat 2 oral suspension 450 mL = 9 Gm, By Mouth, 2 times a day, Please dispense two 450 mL bottles for a total dose that equals 900 mLs. Drink first bottle [address] and then drink second bottle [address] scan,# 2 each, 0 Refills, Maintenance, 02/24/22 17:19:00... Start Date: 02/24/22 Status: Ordered Saline bottle water for flushing Saline bottle water for flushing, See Instructions, # 1 each, Refills 5, Tot. Refills 5, Maintenance, Dx: neurogenic bladder N39.1 suprapubic catheter Z93.59, 04/05/23 15:46:00 EST, Supply Start Date: 04/05/23 Status: Ordered Saline water 100mL bottle Saline water 100mL bottle, See Instructions, # 3 each, Refills 11, Tot. Refills 11, Maintenance, Dx:N31.9 Z93.51 Neurogenic bladder, suprapubic catheter Duration: lifetime, 01/28/22 9:48:00 EST, Supply Start Date: 01/28/22 Status: Ordered Split sponge Split sponge, See Instructions, # 30 each, Refills 11, Tot. Refills 11, Maintenance, Dx:N31.9 Z93.51 Neurogenic bladder, suprapubic catheter Duration: lifetime, 01/28/22 9:47:00 EST, Supply Start Date: 01/28/22 Status: Ordered Ventolin HFA 108 mcg/inh inhalation aerosol with adapter See Instructions, INHALE 1 PUFF BY MOUTH INTO THE lungs 4 (FOUR) TIMES DAILY NEEDED FOR WHEEZING, # 18 Gm, 0 Refills, Maintenance, 11/26/22 14:11:00 EDT, [facility], 160, cm, 09/21/22 13:39:00 EDT, Height, 74.6, kg, 11/11/21 22:01:00 EDT, Dry... 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), managed as type 2 Confirmed Active Neurogenic bladder 1 Confirmed Active Obese class I Confirmed Active Obesity Confirmed Active Obstructive sleep apnea 2 Confirmed Active Severe obstructive sleep apnea Confirmed Active 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 3s/p cystectomy in 01/23 4left adnexa Social History Social History Type Response Smoking Status Never smoker; Tobacc o user in household: No entered on: 12/18/15 Sex Patient Care team information Care Team Personnel Name: Sendy Jean-Baptiste RN Position: [facility] RN Member Role: Primary Care Nurse Name: Kassie Nichole RN Position: [facility] RN Member Role: Primary Care Nurse Name: Martha Juárez RN Position: [facility] RN Supv Member Role: Primary Care Nurse Name: Mona Schulz RN Position: [facility] RN Member Role: Primary Care Nurse Name: Ela Raymond RN Position: [facility] RN Member Role: Primary Care Nurse Name: Jonathan Moreno RN Position: [facility] SN RN Member Role: Primary Care Nurse Name: Corinne Calixto RN Position: [facility] RN Member Role: Primary Care Nurse Name: Ebony Stein RN Position: [facility] RN Member Role: Primary Care Nurse Name: Sunitha Wood MD Position: Reference Physician Member Role: Lifetime Consulting Physician Address: Address: [address] [place] [id number]- Name: Maria Luz Newman RN Position: [facility] Primary Teaching Assistant Member Role: Primary Care Nurse Name: Jacob Carter MD Position: [facility] Physician - Primary Care Member Role: PCP Address: Address: [address] [place] [address]- Name: Nereyda Raza RN Position: [facility] RN Member Role: Primary Care Nurse Name: Kelly Covarrubias RN Position: [facility] RN Member Role: Primary Care Nurse Name: Corrine Olea RN Position: [facility] RN Member Role: Primary Care Nurse Name: Deepa Mosqueda RN Position: [facility] Primary Teaching Assistant Member Role: Primary Care Nurse Care Team Related Persons Name: ЮЛИЯ SOBEIDA Address: home [address] [place] [address] Name: AKOSUA REDMAN Address: home [address] [address] Name: PAUL REDMAN Address: home [address] [place] [address]
== END 2023-07-28 15:54 | disposition home or self-care (01) ==
LOC: HO.HUSH 15:12
PROVIDERS: PCP Internal Medicine; Visit Provider Urology
DX: N31.9 Neuromuscular dysfunction of bladder, unspecified (principal)
CPT/HCPCS: 51705; 99213

== ENCOUNTER → 2023-07-28 15:12 | Outpatient (BNVA) | payer OTHER, SELFPAY | PROVIDERS: PCP Internal Medicine; Visit Provider Urology | DX: N31.9 Neuromuscular dysfunction of bladder, unspecified (principal); Q07.01 Arnold-Chiari syndrome with spina bifida | CPT/HCPCS: 51705; 99212 ==

== ENCOUNTER → 2023-08-25 15:16 | Outpatient (BNVA) | payer OTHER, SELFPAY | PROVIDERS: PCP Internal Medicine; Visit Provider Urology | DX: N31.9 Neuromuscular dysfunction of bladder, unspecified (principal) | CPT/HCPCS: 51705 ==

== ENCOUNTER → 2023-09-22 15:02 | Outpatient (BNVA) | payer OTHER, SELFPAY | PROVIDERS: PCP Internal Medicine; Visit Provider Urology | DX: N31.9 Neuromuscular dysfunction of bladder, unspecified (principal) | CPT/HCPCS: 51705 ==

== ENCOUNTER 2023-10-20 15:07 | Outpatient (AMB) | payer OTHER, SELFPAY ==
--- NOTE | 2023-10-20 15:14 | AM.OFFVISNUR ---
Intake Visit Reasons: 4w/Cath change Allergies Latex, Natural Rubber Adverse Reaction (Intermediate, Verified 07/28/23 15:33) itchy Office Procedures Bladder/Catheter Procedure Details: 18 fr pooja cath 10 ml balloon replaced with new 18 fr pooja cath with 10ml balloon and blue plug. Pt tolerated exchange well. next change in 4 weeks [id number] of bladder tube Procedure code (CPT) selection complete Results AMB Urinalysis, Automated UA Leukoctes 125 Liya/uL Last Edit by Guanako Wolff LPN on 10/20/23 15:45 UA Nitrite Positive Last Edit by Guanako Wolff LPN on 10/20/23 15:45 UA Urobilinogen 0.2 mg/dL Last Edit by Guanako Wolff LPN on 10/20/23 15:45 UA Protein 100 mg/dL Last Edit by Guanako Wolff LPN on 10/20/23 15:45 UA pH 6.0 Last Edit by Guanako Wolff LPN on 10/20/23 15:45 UA Blood 200 Sunny/uL Last Edit by Guanako Wolff LPN on 10/20/23 15:45 UA Specific [place] 1.025 Last Edit by Guanako Wolff LPN on 10/20/23 15:45 UA Ketone Positive Last Edit by Guanako Wolff LPN on 10/20/23 15:45 UA Bilirubin 1 mg/dL Last Edit by Guanako Wolff LPN on 10/20/23 15:45 UA Glucose 0 mg/dL Last Edit by Guanako Wolff LPN on 10/20/23 15:45 Assessment & Plan Assessment & Plan Orders: Orders AMB Urinalysis Automated Today N31.9 - Neuromuscular dysfunction of bladder, unspecified AMB Bladder/Catheter Procedure Today N31.9 - Neuromuscular dysfunction of bladder, unspecified Medications: New levofloxacin 500 mg PO DAILY 5 tabs 0RF 5 days nitrofurantoin macrocrystal must administer with a meal/food for UTI suppression 50 mg PO DAILY 90 caps 1RF 90 days Discontinued nitrofurantoin monohyd/m-cryst 100 mg (Macrobid) must administer with a meal/food Discontinued Reason: Patient Completed Course 100 mg PO BID 10 days 20 caps 0RF UTI sulfamethoxazole-trimethoprim 400-80 mg (Bactrim) Discontinued Reason: Doctor's Order 1 tab PO DAILY 90 days 90 tabs 1RF UTI suppression N31.9 - Neuromuscular dysfunction of bladder, unspecified sulfamethoxazole-trimethoprim 400-80 mg (Bactrim) Discontinued Reason: Doctor's Order 1 tab orally on days of catheter change; 30 tabs 0RF
--- OUTSIDE RECORDS SUMMARY | 2023-10-27 06:07 | XMS_ITS | Continuity of Care Document ---
Author Organization [facility] Adult Medicine Address [address] [place] [id number]- Care Team Providers Care Hand Iii Cutter Name Role Phone Jacob Carter MD Primary Care Physician Encounter [facility] Date(s): 09/06/23 - 10/06/23 [facility] Adult Medicine [address] [place] [phone] Allergies, Adverse Reactions, Alerts Substance Reaction Severity [...] term) 21 01/18/93 Given 1Result Comment: [12/03/2016] [id number] 2Admin Note: VIS GIVEN---MENACTRA, SANOFI PASTEUR 3Admin [...] tablet, 5 Refills, Maintenance, 10/26/22 8:54:00 EDT, [facility], 160, cm, 09/21/22 13:39:00 EDT, Height, 74.6, kg, 11/11/21 22:01:00 EDT, Dry Weight Start Date: 10/26/22 Status: Ordered acetaminophen 500 mg tablet acetaminophen 500 mg tablet, See Instructions, # 100 tablet, 5 Refills, Maintenance, TAKE 2 TABLETSBY MOUTH 3 (THREE) TIMES A DAY NEEDED FOR PAIN, 08/05/23 12:33:00 EDT, 160, cm, 05/11/23 15:09:00 EST, Height, 74.6, kg, 11/11/21 22:01:00 EDT, Dry... Start Date: 08/05/23 Status: Ordered acetaminophen 500 mg tablet acetaminophen [...] 07/13/2316:20:00 EDT, Aerosol, Route to Pharmacy Electronically, [id number], [place], [place] - [id number], 160, cm,... Start Date: 07/13/22 Status: Ordered [...] Gm, 11 Refills, Maintenance, 03/04/22 10:51:00 EST, [place], [place] - [id number], 30, APPLY TO THE AFFECTED AREA TOPICALLY DAILY AT BEDTIME, 160, cm, 02/06... Start Date: 03/04/22 Status: Ordered bacitracin topical 500 u/gm ointment See Instructions, APPLY TO THE AFFECTED AREA TOPICALLY 3 (THREE) TIMES A DAY FOR 7 DAYS. APPLY TO affected SKIN, # 28 Gm, 0 Refills, Maintenance, 09/20/23 14:27:00 EDT, [facility], 14, APPLY TO THE AFFECTED AREA TOPICALLY 3 (THREE) TIMES A DAY FO... Start Date: 09/20/23 Status: Ordered baclofen 10 mg oral tablet 20 mg, 2, tablet, By Mouth, 3 times a day, # 180 tablet, Refills 3, Tot. Refills 3, Maintenance, 01/13/23 12:50:00 EST, Route to Pharmacy Electronically, [place], [place] - [id number], Partial fill upon patient request if the prescrip... Start Date: 01/13/23 Stop Date: 05/13/23 Status: Ordered baclofen 10 mg tablet baclofen 10 mg tablet, 2, tablet, By Mouth, 3 times a day, # 180 tablet, 3 Refills, Maintenance, 09/06/23 11:03:00 EDT, 160, cm, 05/11/23 15:09:00 EST, Height, 74.6, kg, 11/11/21 22:01:00 EDT, Dry Weight Start Date: 09/06/23 Status: Ordered baclofen 10 mg tablet baclofen [...] Date: 08/12/21 Status: Ordered BiPAP Equipment BiPAP 13/7, Maintenance, 05/19/22 21:23:00 EDT, Supply Start Date: 05/19/22 Status: Ordered bisacodyl 10 mg rectal suppository See Instructions, INSERT 1 SUPPOSITORY RECTALLY NEEDED FOR CONSTIPATION, # 15 supp, 2 Refills, Maintenance, 09/21/23 12:21:00 EDT, [facility], 160, cm, 05/11/23 15:09:00 EST, Height, 74.6, kg, 11/11/21 22:01:00 EDT, Dry Weight Start Date: 09/21/23 Status: Ordered Catheter securement device Catheter securement device, See Instructions, # 2 each, Refills 11, Tot. Refills 11, Maintenance, Dx:N31.9 Z93.51 Neurogenic bladder, suprapubic catheter Duration: lifetime, 01/28/22 9:48:00 EST, Supply Start Date: 01/28/22 Status: Ordered Daily Multiple Vitamins oral tablet 1 tablet, By Mouth, Daily, # 30 tablet, 5 Refills, Maintenance, 02/18/23 18:51:00 EST, [facility] - [place], [place] - [id number], 30, 1 tablet By Mouth Daily, 160, [...] EDT, Supply Start Date: 06/12/22 Status: Ordered Diapers See Instructions, # 120 each, Refills 11, Tot. Refills 11, Maintenance, Diapers. 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 (Rash w/L&Cdiapers) SIZE LARGE ADULT, Primary dx: spina bifida;... Start Date: 09/24/23 Status: Ordered diclofenac 1% topical gel = 2 Gm, Topically, 3 times a day, PRN NEEDED FOR KNEE PAIN, not to exceed 16grams/day/single joint OF lower extremities, # 100 Gm, 3 Refills, Maintenance, 06/30/23 16:37:00 EDT, [facility], 17, APPLY 2 grams TOPICALLY [...] day, # 60 tablet, 2 Refills, Maintenance, 09/20/23 11:12:00 EDT, [facility], 160, cm, 05/11/23 15:09:00 EST, Height, 74.6, kg, 11/11/21 22:01:00 EDT, Dry Weight Start Date: 09/20/23 Status: Ordered Jackhorn wound cleanser Jackhorn wound cleanser, See Instructions, # 1 each, Refills 11, Tot. Refills 11, Maintenance, Dx:N31.9 Z93.51 Neurogenic bladder, suprapubic catheter Duration: lifetime, 01/28/22 9:48:00 EST, Supply Start Date: 01/28/22 Status: Ordered hydrocortisone 2.5% topical ointment See Instructions, APPLY IN A thin film TO affected SKIN AND RUB in gently AND completely 3 (THREE) TIMES A DAY, # 28.35 Gm, 3 Refills, Maintenance, 09/23/23 13:16:00 EDT, [facility], 15, APPLY IN A thin film TO affected SKIN AND RUB in gently AND... Start Date: 09/23/23 Status: Ordered Inject Ease Lancets 28 gauge [...] 0 Refills, Maintenance, 04/05/23 12:08:00 EST, Syrup, [facility] [id number], Partial fill upon patient request if the prescription is for a schedule II... Start Date: 04/05/23 Status: Ordered Lantus Solostar Pen 100 units/mL subcutaneous solution = 25 units, Subcutaneous Injection, Daily, # 10 mL, 2 Refills, Maintenance, 07/06/23 10:35:00 EDT, [facility] [id number], Please disregard order for 25 units., 160, [...] hours, # 30 patch, 3 Refills, Maintenance, 09/20/23 11:19:00 EDT, [facility], 30, Apply 1 patch to the affected area for 12 hours a day. Remove for 12 hours, 1... Start Date: 09/20/23 Status: Ordered Mounjaro 5 mg/0.5 mL subcutaneous solution = 5 mg, Subcutaneous Injection, Every week, rotate injection sites, # 4 each, 5 Refills, Maintenance, 07/06/23 10:53:00 EDT, Solution, [place], [place] - [id number], Partial fill upon patient request if the prescription is for a sched... Start Date: 07/06/23 Status: Ordered Naphcon-A 0.025%-0.3% ophthalmic solution 1 drops, Eyes, Both, 4 times a day, # 15 mL, 1 Refills, Maintenance, 06/30/22 18:14:00 EDT, Solution, [place], [place] - [id number], Partial fill upon patient request if the [...] Gm, 11 Refills, Maintenance, 03/09/23 11:42:00 EST, [place], [place] - [id number], 30, APPLY TO THE AFFECTED AREA TOPICALLY two (2) times a day, 160, cm,... Start Date: 03/09/23 Status: Ordered nystatin topical [id number] u/gm powder 1 application, Topically, 5 times a day, # 60 Gm, 2 Refills, Maintenance, 02/10/22 12:41:00 EST, Powder, [place], [place] - [id number], Partial fill upon patient request if the prescription is for a schedule II opioid drug., 1 applica... Start Date: 02/10/22 Status: Ordered ondansetron 4 mg oral tablet, disintegrating See Instructions, PLACE 1 TABLET UNDER THE TONGUE TO DISSOLVE EVERY 8 HOURS NEEDED FOR NAUSEA AND FOR VOMITING, # 20 tablet, 0 Refills, Maintenance, 09/03/23 16:05:00 EDT, [facility], 160, cm, 05/11/23 15:09:00 EST, Height, 74.6, kg, 11/11/21... Start Date: 09/03/23 Status: Ordered ondansetron 4 mg oral tablet, disintegrating See Instructions, place 1 TABLET UNDER THE TONGUE TO DISSOLVE EVERY 8 HOURS NEEDED FOR NAUSEA AND FOR VOMITING, # 20 each, 1 Refills, Maintenance, 05/31/23 15:39:00 EDT, [facility], 160, cm, 05/11/23 15:09:00 EST, Height, 74.6, kg, 11/11/21 22... Start Date: 05/31/23 Status: Ordered oxyCODONE 5 mg oral tablet See Instructions, TAKE 1 TABLET BY MOUTH 3 (THREE) TIMES A DAY NEEDED FOR moderate PAIN, # 84 tablet, Refills 0, Tot. Refills 0, Maintenance, 06/07/23 14:38:00 EDT, Instructions Replace Required Details, Route to Pharmacy Electronically, [facility]... Start Date: 06/07/23 Stop Date: 07/16/23 Status: Ordered oxyCODONE 5 mg oral tablet 5 mg, 1, tablet, By Mouth, 3 times a day, PRN, On narcotic contract at [facility], dx chronic back pain, chronic hip pain. May fill for less than prescribed., # 84 tablet, Refills 0, Tot. Refills 0, Maintenance, Pain , Moderate, 09/06/23 12:18:00 EDT, Route... Start Date: 09/06/23 Stop Date: 10/04/23 Status: Ordered Pen [place], 31 G x 8 mm BD Ultra [...] tablet, 0 Refills, Maintenance, 09/15/22 7:58:00 EDT, [facility] [id number], Partial fill upon patient request if the prescription is for a schedule II opioid drug., 160, cm, 09/11/22 14... Start Date: 09/15/22 Stop Date: 09/22/22 Status: Ordered pregabalin 75 mg oral capsule 1 capsule = 75 mg, By Mouth, 2 times a day, # 60 capsule, 5 Refills, Maintenance, 04/05/23 11:55:00EST, Capsule, [facility] [id number], Partial fill upon patient request if the [...] DAILY, # 30 capsule, 2 Refills, Maintenance, 09/01/23 14:28:00 EDT, [facility] - [place], [place] - [id number], 160, cm, 05/11/23 15:09:00 EST, Height, 74.6, kg, 11/11/21 22:01:00 EDT, Dry Weight Start Date: 09/01/23 Status: Ordered Problem List Condition Confirmation Course [...] Team Personnel Name: Sendy Jean-Baptiste RN Position: [facility] RN Member Role: Primary Care Nurse Name: Kassie Nichole RN Position: [facility] RN Member Role: Primary Care Nurse Name: Martha Juárez RN Position: [facility] RN Suptez Member Role: Primary Care Nurse Name: Mona Schulz RN Position: [facility] RN Member Role: Primary Care Nurse Name: Ela Raymond RN Position: [facility] RN Member Role: Primary Care Nurse Name: Jonathan Moreno RN Position: [facility] RN Member Role: Primary Care Nurse Name: Corinne Calixto RN Position: [facility] RN Member Role: Primary Care Nurse Name: Ebony Stein RN Position: [facility] RN Member Role: Primary Care Nurse Name: Sunitha Wood MD Position: Reference Physician Member Role: Lifetime Consulting Physician Address: Address: [address] [place] [address]- Name: Maria Luz Newman RN Position: [facility] Hospital Satellite Specialist Member Role: Primary Care Nurse Name: Jacob Carter MD Position: [facility] Physician - Primary Care Member Role: PCP Address: Address: [address] [place] [address]- Name: Nereyda Raza RN Position: [facility] RN Member Role: Primary Care Nurse Name: Kelly Covarrubias RN Position: [facility] RN Member Role: Primary Care Nurse Name: Corrine Olea RN Position: [facility] RN Member Role: Primary Care Nurse Name: Deepa Mosqueda RN Position: [facility] Hospital Satellite Specialist Member Role: Primary Care Nurse Care Team Related Persons Name: SOBEIDA REDMAN Address: home [address] [place] [address] Name: AKOSUA REDMAN Address: home [address] [address] Name: PAUL REDMAN Address: home [address] [address]
== END 2023-10-20 16:01 | disposition home or self-care (01) ==
PROVIDERS: PCP Internal Medicine; Visit Provider Urology
DX: R31.9 Hematuria, unspecified (principal)

== ENCOUNTER 2023-10-20 15:07 | Outpatient (REF) | payer OTHER, SELFPAY | END 2023-10-20 15:08 | disposition home or self-care (01) | LOC: HO.LAB 15:07 | PROVIDERS: PCP Internal Medicine; Visit Provider Urology | DX: N31.9 Neuromuscular dysfunction of bladder, unspecified (principal) | CPT/HCPCS: 51705; 81003; 87086; 87088; 87186 ==

== ENCOUNTER → 2023-11-17 15:11 | Outpatient (BNVA) | payer OTHER, SELFPAY | PROVIDERS: PCP Internal Medicine; Visit Provider Urology ==

== ENCOUNTER → 2023-12-15 14:51 | Outpatient (BNVA) | payer OTHER, SELFPAY | PROVIDERS: PCP Internal Medicine; Visit Provider Urology | DX: N31.9 Neuromuscular dysfunction of bladder, unspecified (principal); Z46.6 Encounter for fitting and adjustment of urinary device; Z93.50 Unspecified cystostomy status | CPT/HCPCS: 51705 ==

== ENCOUNTER 2024-01-12 14:47 | Outpatient (AMB) | payer OTHER, SELFPAY ==
--- NOTE | 2024-01-12 14:48 | MHC.OFFVIS ---
Intake Visit Reasons: 6m follow up/cath change Intake Note: Patient is present for 6M F/U CATH CHANGE Urology Medication:OXYBUTYNIN,LEVOFLOXCIN,NITROFURANTOIN MACROCRYSTAL Antibiotic Allergy:NONE Blood Thinner:NONE Physician Practice Consultant Required: No Allergies Latex, Natural Rubber Adverse Reaction (Intermediate, Verified 01/12/24 14:52) itchy HPI Comments Details: Norma is a very pleasant female. 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 Use of overnight bag for drainage. Will start methenamine with vitamin-C for suppression They are extremely happy with the current situation and their ability to manage the daughters bladder emptying [facility] Medical History Splenomegaly Hepatic steatosis Hx of exertional chest pain López catheter present Scoliosis, congenital Spina bifida Sleep apnea in adult Paraplegia Arnold-Chiari malformation Able to perform intermittent urethral self-catheterization Nausea Diabetes History of infection with vancomycin resistant Enterococcus (VRE) Recurrent UTI (urinary tract infection) Neurogenic bladder Surgical History Hx of spinal surgery Hx of cholecystectomy Hx of ovarian cystectomy S/P ASSISTANT SITE MANAGER shunt Social History Patient Tobacco Use Status: Never used Tobacco Review of Systems Const Denies chills and Denies fever(s) Card Reports no additional complaints and Denies syncope Resp Denies cough GI Denies abdominal pain and Denies heartburn Reports as per HPI and Denies change in libido Neuro Denies syncope Psych Denies change in libido Endo Denies change in libido Physical Exam Const General: cooperative, healthy appearing, comfortable and no acute distress Orientation/consciousness: patient oriented x3 HEENT Face and sinus: Yes normal facial exam Mouth: moist mucous membranes Neck Neck: Yes normal visual inspection, Yes full ROM and Yes trachea midline Chest Chest palpation & inspection: normal inspection of the chest Resp Effort & Inspection: normal respiratory effort, able to speak in complete sentences and no respiratory distress GI Inspection: Yes normal to inspection Back/Spine/Pelvis Cervical Spine: normal cervical lordosis Thoracic/Lumbar Spine: thoracic and lumbar spine normal to inspection Skin General skin exam: no rashes or lesions noted Neuro General: patient oriented x3, gait normal, tone normal and moves all extremities Extrem General: Yes normal to inspection and Yes capillary refill normal Office Procedures Bladder/Catheter Procedure Details: 18 fr simi cath 10 ml balloon replaced with new 20 fr simi cath with 10ml balloon and blue plug. Pt tolerated exchange well. next change in 4 weeks [id number] of bladder tube Procedure code (CPT) selection complete Assessment & Plan Assessment & Plan (1) Neurogenic bladder: Comment: Suprapubic tube placed October 2020 Code(s): N31.9 - Neuromuscular dysfunction of bladder, unspecified Category: Medical Plan Six-month follow-up Orders: Orders AMB Bladder/Catheter Procedure Today N31.9 - Neuromuscular dysfunction of bladder, unspecified Patient Instructions: Imaging studies, laboratory and physical exam results were discussed and reviewed in detail. No major barriers to patient understanding were identified. An opportunity to ask questions regarding the treatment plan was provided. All questions were answered. The patient expressed understanding and agreement with the above treatment plan. The patient is aware they should contact our office by phone for worsening of their current condition or the appearance of new urologic symptoms. Compliance is encouraged with any medications and followup testing that is ordered. It is a privilege to participate in the urologic care of your patient. If you have any questions or concerns regarding treatment for the above conditions, or other urologic issues, please do not hesitate to contact me. The office telephone contact is [phone]. This note is constructed using voice recognition software. While every effort has been made to ensure accuracy powder coat painter errors may have been included. Yours sincerely, Dr Jeff Verduzco MD, [facility] - Urology Providers of Expert, Compassionate Care for the Genitourinary System Coding Level of Care Code Est Pt Level 3 (64421) Diagnoses Neurogenic bladder N31.9 CPT Codes Bladder/Catheter Procedure - CPT: 30716-Fpcarb of bladder tube ([id number])
== END 2024-01-12 15:32 | disposition home or self-care (01) ==
LOC: HO.HUSH 14:47
PROVIDERS: PCP Internal Medicine; Visit Provider Urology
DX: N31.9 Neuromuscular dysfunction of bladder, unspecified (principal); Z43.5 Encounter for attention to cystostomy
CPT/HCPCS: 51705; 99213

== ENCOUNTER → 2024-01-12 14:47 | Outpatient (BNVA) | payer OTHER, SELFPAY | PROVIDERS: PCP Internal Medicine; Visit Provider Urology | DX: N31.9 Neuromuscular dysfunction of bladder, unspecified (principal); Z46.6 Encounter for fitting and adjustment of urinary device; Z93.50 Unspecified cystostomy status | CPT/HCPCS: 51705; 99212 ==

== ENCOUNTER 2024-02-14 14:44 | Outpatient (AMB) | payer OTHER, SELFPAY ==
--- NOTE | 2024-02-14 14:46 | AM.OFFVISNUR ---
Intake Visit Reasons: 4w SPT change Allergies Latex, Natural Rubber Adverse Reaction (Intermediate, Verified 01/12/24 14:52) itchy Office Procedures Bladder/Catheter Procedure Details: 20 fr pooja cath 10 ml balloon replaced with new 20 fr pooja cath with 10ml balloon and blue plug. Pt tolerated exchange well. next change in 4 weeks [id number] of bladder tube Procedure code (CPT) selection complete Assessment & Plan Assessment & Plan Orders: Orders AMB Bladder/Catheter Procedure Today N31.9 - Neuromuscular dysfunction of bladder, unspecified
== END 2024-02-14 15:27 | disposition home or self-care (01) ==
PROVIDERS: PCP Internal Medicine; Visit Provider Urology
DX: N31.9 Neuromuscular dysfunction of bladder, unspecified (principal)
CPT/HCPCS: 51102

== ENCOUNTER → 2024-02-14 14:44 | Outpatient (BNVA) | payer OTHER, SELFPAY | PROVIDERS: PCP Internal Medicine; Visit Provider Urology ==

== ENCOUNTER 2024-03-13 14:54 | Outpatient (AMB) | payer OTHER, SELFPAY ==
--- NOTE | 2024-03-13 15:12 | AM.OFFVISNUR ---
Intake Visit Reasons: 4w/ SPT change Allergies Latex, Natural Rubber Adverse Reaction (Intermediate, Verified 01/12/24 14:52) itchy Office Procedures Bladder/Catheter Procedure Details: 20 fr pooja cath 10 ml balloon replaced with new 20 fr pooja cath with 10ml balloon and blue plug. Pt tolerated exchange well. next change in 4 weeks [id number] of bladder tube Procedure code (CPT) selection complete Assessment & Plan Assessment & Plan Orders: Orders AMB Bladder/Catheter Procedure Today N31.9 - Neuromuscular dysfunction of bladder, unspecified
== END 2024-03-13 15:13 | disposition home or self-care (01) ==
PROVIDERS: PCP Internal Medicine; Visit Provider Urology
DX: N31.9 Neuromuscular dysfunction of bladder, unspecified (principal)

== ENCOUNTER → 2024-03-13 14:54 | Outpatient (BNVA) | payer OTHER, SELFPAY | PROVIDERS: PCP Internal Medicine; Visit Provider Urology | DX: N31.9 Neuromuscular dysfunction of bladder, unspecified (principal) | CPT/HCPCS: 51705 ==

== ENCOUNTER → 2024-04-10 15:07 | Outpatient (BNVA) | payer OTHER, SELFPAY | PROVIDERS: PCP Internal Medicine; Visit Provider Urology | DX: N31.9 Neuromuscular dysfunction of bladder, unspecified (principal) | CPT/HCPCS: 51705 ==

== ENCOUNTER → 2024-05-08 14:44 | Outpatient (BNVA) | payer OTHER, SELFPAY | PROVIDERS: PCP Internal Medicine; Visit Provider Urology | DX: N31.9 Neuromuscular dysfunction of bladder, unspecified (principal) | CPT/HCPCS: 51705 ==

== ENCOUNTER → 2024-06-05 15:04 | Outpatient (BNVA) | payer OTHER, SELFPAY | PROVIDERS: PCP Internal Medicine; Visit Provider Urology | DX: N31.9 Neuromuscular dysfunction of bladder, unspecified (principal); Z46.6 Encounter for fitting and adjustment of urinary device; Z93.50 Unspecified cystostomy status | CPT/HCPCS: 51705 ==

== ENCOUNTER → 2024-07-03 15:33 | Outpatient (BNVA) | payer OTHER, SELFPAY | PROVIDERS: PCP Internal Medicine; Visit Provider Urology | DX: N31.9 Neuromuscular dysfunction of bladder, unspecified (principal) | CPT/HCPCS: 51705 ==

== ENCOUNTER 2024-07-25 15:17 | Outpatient (AMB) | payer OTHER, SELFPAY ==
--- NOTE | 2024-07-25 15:38 | A.OFFVIS_ITS ---
Intake Visit Reasons: 6m follow up/ Cath Change Allergies Latex, Natural Rubber Adverse Reaction (Intermediate, Verified 01/12/24 14:52) itchy HPI Comments Details: Norma is a very pleasant female. 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 Use of overnight bag for drainage. Will start methenamine with vitamin-C for suppression They are extremely happy with the current situation and their ability to manage the daughters bladder emptying PFSH Medical History Splenomegaly Hepatic steatosis Hx of exertional chest pain López catheter present Scoliosis, congenital Spina bifida Sleep apnea in adult Paraplegia Arnold-Chiari malformation Able to perform intermittent urethral self-catheterization Nausea Diabetes History of infection with vancomycin resistant Enterococcus (VRE) Recurrent UTI (urinary tract infection) Neurogenic bladder Surgical History Hx of spinal surgery Hx of cholecystectomy Hx of ovarian cystectomy S/P [employer] shunt Social History Patient Tobacco Use Status: Never used Tobacco Review of Systems Const Denies chills and Denies fever(s) Card Reports no additional complaints and Denies syncope Resp Denies cough GI Denies abdominal pain and Denies heartburn Reports as per HPI and Denies change in libido Neuro Denies syncope Psych Denies change in libido Endo Denies change in libido Physical Exam Const General: cooperative, healthy appearing, comfortable and no acute distress Orientation/consciousness: patient oriented x3 HEENT Face and sinus: Yes normal facial exam Mouth: moist mucous membranes Neck Neck: Yes normal visual inspection, Yes full ROM and Yes trachea midline Chest Chest palpation & inspection: normal inspection of the chest Resp Effort & Inspection: normal respiratory effort, able to speak in complete sentences and no respiratory distress GI Inspection: Yes normal to inspection Back/Spine/Pelvis Cervical Spine: normal cervical lordosis Thoracic/Lumbar Spine: thoracic and lumbar spine normal to inspection Skin General skin exam: no rashes or lesions noted Neuro General: patient oriented x3, gait normal, tone normal and moves all extremities Extrem General: Yes normal to inspection and Yes capillary refill normal Office Procedures Bladder/Catheter Procedure Details: 20 fr cath 10 ml balloon replaced with new 20 fr cath with 10ml balloon and blue plug. Pt tolerated exchange well. next change in 4 weeks 16229-[id number] of bladder tube Procedure code (CPT) selection complete Assessment & Plan Assessment & Plan (1) Neurogenic bladder: Comment: Suprapubic tube placed October 2020 Code(s): N31.9 - Neuromuscular dysfunction of bladder, unspecified Category: Medical Plan Six-month follow-up check Orders: Orders AMB Bladder/Catheter Procedure Today N31.9 - Neuromuscular dysfunction of bladder, unspecified Medications: Refilled povidone-iodine 10% Apply thin coat 2 times a day to affected area around suprapubic tube 1 appl topical BID PRN 60 grams 3RF disinfection N31.9 - Neuromuscular dysfunction of bladder, unspecified Patient Instructions: This note is constructed using voice recognition software. While every effort has been made to ensure accuracy plumbing assembler errors may have been included. Imaging studies, laboratory and physical exam results were discussed and reviewed in detail. No major barriers to patient understanding were identified. An opportunity to ask questions regarding the treatment plan was provided. All questions were answered. The patient expressed understanding and agreement with the above treatment plan. The patient is aware they should contact our office by phone for worsening of their current condition or the appearance of new urologic symptoms. Compliance is encouraged with any medications and followup testing that is ordered. It is a privilege to participate in the urologic care of your patient. If you have any questions or concerns regarding treatment for the above conditions, or other urologic issues, please do not hesitate to contact me. The office telephone contact is [phone]. Sincerely, Dr Jeff Verduzco MD, [facility] - Urology Compassionate Specialist Care for the Genitourinary System Coding Level of Care Code Est Pt Level 3 (28603) Complex EM visit Add On G2211 Diagnoses Neurogenic bladder N31.9 CPT Codes Bladder/Catheter Procedure - CPT: 94994-[id number] of bladder tube ([id number])
--- OUTSIDE RECORDS SUMMARY | 2024-07-25 16:22 | XMS_ITS | Clinical Summary ---
Author Organization [facility] ity Address [address] [place] [address] Care Team Providers Care Rating Officer Name Role Phone Jacob Carter MD Primary Care Provider [phone] Social History Tobacco Use Types Packs/Day Years Used Date Smoking Tobacco: Never Assessed Comments Unknown Sex and Gender Information Value Date Recorded Sex Assigned at Not on file Legal Sex Female 3:59 AM EST Gender Identity Not on file Sexual Orientation Not on file Plan of Treatment Health Maintenance Due Date Last Done Comments DTaP,Tdap,and Td Vaccines (1 - Tdap) 12/28/2011 Hepatitis B Vaccines (1 of 3 - 19+ 3-dose series) 12/28/2011 Cervical Cancer Screening: P ap Smear 2013 Depression Screening 02/08/2022 HIV Screening 02/08/2022 Hepatitis C Screening 02/08/2022 Social Influencers of Health Screening 02/08/2022 COVID-19 Vaccine (2023-2 5 season) 2023 Influenza Vaccine (Season Ended) 2024 HIB Vaccines Aged Out No longer eligi ble based on patient's age to complete this topic HPV Vaccines Aged Out No longer eligi ble based on patient's age to complete this topic Hepatitis A Vaccines Aged Out No long er eligible based on patient's age to complete this topic IPV Vaccines Aged Out No longer eligi ble based on patient's age to complete this topic MMR Vaccines Aged Out No longer eligi ble based on patient's age to complete this topic Meningococcal ACWY Vaccine Aged Out N o longer eligible based on patient's age to complete this topic Meningococcal B Vaccine Aged Out No l onger eligible based on patient's age to complete this topic Pneumococcal Vaccine: Pediat rics (0 to 5 Years) and At-Risk Patients (6 to 64 Years) Aged Out No longer eligible b ased on patient's age to complete this topic RSV Immunization Patients Un shelby 20 months Aged Out No longer eligible b ased on patient's age to complete this topic Varicella Vaccines Aged Out No longer eligible based on patient's age to complete this topic Care Teams Rating Officer Relationship Specialty Start Date End Date Jacob Carter MD [address] [place] [address] PCP - General Internal Medicine 11/25/20
--- OUTSIDE RECORDS SUMMARY | 2024-07-25 16:22 | XMS_ITS | Clinical Summary ---
Author Organization [facility] Address [address] [place] [address] Care Team Providers Care Mobility Scooter Repairer Name Role Phone Neeta Brambila DMD Primary Care Provider [phone] Source Comments PLEASE NOTE, if this patient is a minor, it may be UNLAWFUL to discuss sensitive information that is contained in these records (such as FAMILY PLANNING, MENTAL HEALTH or SUBSTANCE ABUSE) with the minor patient's parent or other person without the patient's specific authorization.[facility] Medications amoxicillin (AMOXIL) 500 mg capsuleIndicatio ns:Preventive antibiotic Take 4 caps 1hr before dental visit 20 Cap 07/28/2017 Active Social History Tobacco Use Types Packs/Day Years Used Date Smoking Tobacco: Never Assessed Social Connections Answer Date Recorded Social Connections and Isolation 0 08/14/2020 Financial Resource Strain Answer Date R ecorded Financial Resource Strain 0 2020 Stress Answer Date Recorded Stress 0 08/14/2020 Physical Activity Answer Date Recorded Physical Activity 0 08/14/2020 Food Insecurity Answer Date Recorded Food 0 08/14/2020 Transportation Needs Answer Date Record ed Transportation 0 08/14/2020 Housing Stability Answer Date Recorded Housing 0 08/14/2020 Safety and Environment Answer Date Karlos rded Safety 0 08/14/2020 Utilities Answer Date Recorded Utilities 0 08/14/2020 Employment Answer Date Recorded Employment 0 08/14/2020 Comments Unknown Sex and Gender Information Value Date Recorded Sex Assigned at Not on file Legal Sex Female 1:20 PM PDT Gender Identity Not on file Sexual Orientation Not on file Plan of Treatment Not on file Insurance [employer] [facility] [address] Care Teams Mobility Scooter Repairer Relationship Specialty Start Date End Date Neeta Brambila DMD [address] [place] [address] PCP - General 11/17/18
--- OUTSIDE RECORDS SUMMARY | 2024-07-25 16:23 | XMS_ITS | Data Portability ---
Author Organization [place] - [facility] Address [address] [place] [id number] Assessment Encounter Date Assessment Date Assessment LastModified by Organization Details LastModified Time 12/14/2019 12/14/2019 Overview/History : 28 yo female with PMH of diabetes, sleep apnea, arnold chiari, spina bifida whop resents with complain of possible uti. Patient has hx of complicated UTIs with urosepsis and hospitalizations. Last UTI about 4 months ago. Patient reports pain and burning with urination as well as suprapubic pain X2d. She denies any fever, chills, nausea, vomiting, blood in the urine, flank pain Exam: Patient is hemodynamically stable, afebrile, not ill or toxic appearing; Physical exam is unremarkable; no CVA or suprapubic tenderness DDx considered, but not limited to: UTI/cystitis - most likely dx based on clinical presentation and urinalysis results Urethritis/STI - unlikely; patient denies vaginal discharge; no sexually active Pyonephritis - unlikely no fever, no CVA tenderness Candidiasis - no vaginal discharge Interstitial cystitis/bladder pain syndrome Work up/Results: Urinalysis - +1 blood, +1 nitrates, +3 leukocytes Urine culture pending Plan/Discussion: - based on clinical presentation symptoms are most likely due to UTI; will start treatment with Bactrim urine cx pending results - follow up with PCP as needed within 3-5 days or sooner if symptoms worsen or do not improve - advised when to seek immediate medical attention/911/ED - patient expressed understanding and agreed to tx plan In order to obtain further information and compare any laboratory results/values, I have accessed patient records on the [employer]. This information was pertinent in my medical decision making today. Time On Scene with Patient: 00:26:10 Time On Scene with Patient: 00:26:10 shyann Not available 12/25/2019 13:45:54 03/14/2020 03/14/2020 Overview/History :Vito carbajal is a 29-year-old female whose mother [facility] because patient has been having a myriad of complaints that they generally attribute to urinary tract infections. These include headache, back ache and blurred vision. Exam: On exam the patient is hemodynamically stable, she is a low-grade fever of 99.3. She is laying in bed. She is engaging appropriately in the exam. She does not appear to be in any distress. She does seem to have some right-sided CVA tenderness as well as generalized back discomfort. DDx considered, but not limited to:Consider acute urinary tract infection as the patient's urinalysis is positive for blood and leukocytes, pyelonephritis is also considered as she has CVA tenderness and low-grade fever. Cystitis considered. Sexually transmitted infection unlikely as patient is homebound and is not sexually active. Sepsis considered however patient is hemodynamically stable at this time Work up/Results:Patient 's mother straight catheter for urine specimen, urinalysis was positive for 3+ blood and leukocytes, no nitrates, urine culture is pending. Plan/Discussion:I discussed with the patient and her mother the results of her urinalysis. I have started her on a course of antibiotics, I did review her prior urinalysis, this is very similar to her prior period urine culture [facility] showed that Macrobid provided adequate coverage so I opted to start her on this. I did discuss with the patient and her mother signs of worsening infection and pyelonephritis. I did give them very strict emergency room precautions regarding this I explained that if she were to deteriorate any further next 24 hours or not improved the next 48 hours that she should go to the emergency department as she does have a history of being hospitalized for sepsis. I also again stressed that the complaints of headache and blurred vision typically indicate that there may be something neurologic wrong, I explained that this would likely need be evaluated at the hospital with imaging. The patient's mother insists that this is a symptom that her daughter frequently has with urinary tract infections. She did verbalize understanding of discharge instructions as well as the emergency room precautions were provided. I have also suggested that they try to follow up with urology. In order to obtain further information and compare any laboratory results/values, I have accessed old patient records. This information was pertinent in my medical decision making today. Time On Scene with Patient: 00:25:17 Proper Personal Protective Equipment (PPE), including gloves, eye protection and masks were donned and doffed appropriately and all equipment cleaned using approved technique with germicidal disposable wipes prior to and after care of this patient according to [facility] infection prevention protocols. [email or web address] Not available 03/14/2020 17:09:14 02/23/2022 02/23/2022 Overview/History : 31 YO F new to provider and known to She is being seen today at home PMH of spinal bifida, suprapubic catheter, DM, RUPERT Being seen today for pain around her catheter This has been ongoing for months on and off per patient Pain is described as mild, started again last couple of days, streeter snot seem to be worsening She has trialled tylenol, ibuprofen, and narcotics for her pain and these have had no effect per patient She had a BM today after a suppository and this had no effect on her pain. This was not diarrhea and no bloody nor black/tarry There has always been some drainage around her suprapubic catheter site and some small amt of blood, all of this is normal for her and mother and pt report. Apparently urology and [facility]NA (who see's patient daily) are aware and have discussed w/ them that is normal for her. Urology has referred her back to PCP as they apparently do not believe her catheter is the issue. Today the reason the patient had an appt booked w/ our service was because a telehealth visit was missed earlier in the day d/t the power going out at the patient's PCP office it seems. They wanted her seen so they called us. Currently they deny any fever, chills, diffuse abd pain, NVD, bloody or black stools, catheter coming out, change to her drainage, lethargy, confusion, weakness, flank pain. No other reports sxs today. Exam: Vitals: VSS and afebrile Constitutional: 31 yo Well developed, well nourished, pleasant patient in no apparent distress. She is laying comfortable in her bed w/ her Nintendo Switch next to her. She is talking about how she is looking forward to playing Sonic once we leave. She is not toxic appearing. Eyes: PERRL at 4mm, EOM's intact, corrective lenses, No swelling, no discharge, sclera / conjunctiva clear ENT: no nasal discharge, no erythema/ exudate noted in oropharynx, moist mucous membranes CV: RRR, no rubs/ murmurs/ gallops heard, 2+ radial pulses bilaterally, no edema and no calf tenderness BL, 2+ DP/ PT pulses bilaterally Pulm: breath sounds clear and equal bilaterally, no wheeze/ rhonchi or rales on auscultation. Speaks in full sentences, no increased work of breathing. GI: Soft, non-tender to palpation. No masses, normal bowel sounds. No guarding and no distension noted. There is no tympany. : No CVA tenderness bilaterally. No suprapubic tenderness. Suprapubic catheter is intact, draining CYU. No drainage at this time and no active bleeding. Mild tenderness/discomf ort around the catheter site that is very mild and only noted to deep palpation. MS: no evidence of trauma Neuro: A&O x4 Skin: No rash, visible skin is cdi Psych: Calm, cooperative, non-manic. Pleasant. DDx considered, but not limited to: Sepsis/Acute Abdomen/Pyelo - benign abdomen exam outside of mild discomfort surrounding the catheter to deep palpation. Pt has CYU in cath bag, Changed only 4 day ago by uro. She has stable VS and no fever. She is overall well appearing. She is laying comfortably in bed w/o any noticeable discomfort. Seems pain has been more chronic and not acute in nature. It is not worsening. Doubt acute process at this time based on presentation. Work up/Results: Attempted blood draw to assess KFTs and check for possible leukocytosis that could potentially point us to an acute direction for her discomfort however pt reports she is a hard stick. As we get her set for blood draw and it takes some time to find suitable vein pt mother becomes impatient and reports she will just take her to PCP office tomorrow to have her assessed and get potential labs if needed. Plan/Discussion: Abd pain near suprapubic catheter: -No severe pain, pt is comfortable, vss and not toxic appearing w/o fever -Apparently was sent back to PCP by uro as they believe catheter is not cause of pain, mother thinks it is. Mother is present for visit over the phone, pt is in front of us. -According to pt and mother uro also does not believe she has a UTI and do not want her getting lots of antibiotics for her urine w.o going through them first as tehy apparently want to avoid antibiotic resistance -Pt supposed to have telehealth w/ PCP today, after that was missed d/t technical difficulties on PCP end mother called us to come evaluate her daughter today instead of attempting to reschedule -Discussed that we are limted w/ what we can do in the home but we could attempt to draw blood -Pt reports she is a very hard stick but mother reports she is not and they hae no problems at the PCP office...we get 2 different stories regarding this -When discussing it may be tough for us to get blood and start discussing if they are leif to take dtr outpatient landon blood tests if I order them mother reports she will just take her to see PCP tomorrow as that will be easier . She would like to terminate this visit. We discuss w/ dtr who agrees she would prefer to not be stuck by us and they will f.u with PCP tomorrow. -This is likely the most appropriate course of action anyway as I doubt an emergent or urgent process based on presentation -I tried to reassure pt and mother that dtr looks well and has stable VS however mother immediately interjects she always looks good even when she isn't . -Educated them that if her pain were to worsen, she was to bleed out of catheter site or have increase in drainage, or if she were to spike fever or become lethargic to f/u emergently for eval. -OF note I reached out to supervising physician Dr Forde during visit w/ a summary of my plan prior to pt terminating encounter. She was unable to respond to my message before encounter was terminated and I let her know that it was. She repsonded w/ a thumbs up to my message. Pt and fam is on agreement and verbalizes understanding with the above plans at this time. Pt and fam has no other questions or concerns at this time. All questiosn are answered to the best of my ability. Pt and fam who is present at home thanks us for our visit today. Pt is left laying comfortably in bed reaching for her switch as we leave [email or web address] Not available 02/23/2022 18:24:33 Plan of Treatment Reminders Order Date Submit Date Provider Last Modified By Organization Details Last Modified Time Details Appointments None recorded. Lab urinalysis , dipstick 2020 [email or web address] 31 Spr - Home, [address] [facility], [place], [address], 1 15:52:55 culture, urine - Collected by [facility] 2020 SHIRA [facility] (Centralized Electronic Ordering - All Locations), Patient Can Go To The Location Of Their Choice, [id number] 1 12:34:09 urinalysis , dipstick 2019 [email or web address] Spr - Home, [address] [facility], [place], [address], 0 14:34:00 culture, urine - Collected by [facility] 2019 SHIRA [facility] (Centralized Electronic Ordering - All Locations), Patient Can Go To The Location Of Their Choice, [id number] 0 16:03:55 Referral None recorded. Procedures None recorded. Surgeries None recorded. Imaging None recorded. Medication Orders Macrobid 100 mg capsule 2020 INTERFACE [facility] - [place], [place] - [id number], [address] [place], [address], 1 15:54:41 Bactrim DS 800 mg-160 mg tablet 2019 crumplik [facility] - [place], [place] - [id number], [address] [place], [address], 2 16:57:26 Patient TargetsNo targets recorded. Patient Instructions Encounter Date Encounter Id Patient Instructions Last Modified By Organization Details Last Modified Time 12/14/2019 [id number] URINARY TRACT INFECTION INSTRUCTIONS BASIC INFORMATION Urinary tract infections(UTI) can involve any portion of the urinary tract. The most common presentation is a bladder infection/cystitis, which usually presents with urinary frequency, burning with urination, urgency, foul smelling cloudy urine and occasionally blood. Kidney infections are less frequent, but more serious, and present with fever, flank pain, malaise and sometimes shaking chills. UTI? s are common in women because of the female anatomy, and much less common in males. INSTRUCTIONS Drink plenty of fluid, water is best. Drinking fluids will help to flush the bacteria from your body. Urinate every 2-3 hours Wear cotton underwear and avoid Nylon, Spandex and Lycra which tend to trap moisture and thong underwear which may facilitate UTI? s . Avoid tub baths Avoid using Super Tampons Use only mild unscented soap to wash your genitals, such as Dove or Ivory, avoid heavily scented body washes. If you are sexually active urinate as soon as possible after intercourse. Yogurt and probiotics may help to establish a more healthy genital environment, and aid in prevention. MEDICATIONS 1.Antibiotics: Usually prescribed if you have a UTI, there are many different effective antibiotics available. It is important that you complete the course of antibiotics you are given. You should feel some improvement within 24-48 hours, if you do not it may be that the bacteria causing your infection is resistant to the prescribed medication. If a urine culture is obtained it will usually take at least 3-4 days to get the final result. 2. Anesthetic/Pain relievers: Phenazopyridine (Pyridium, Uribelle, AZO) is an anesthetic excreted in the urine. This medicine will turn your urine BRIGHT ORANGE! This is normal, and may stain your underwear can contacts. Take this medication as directed with food. 3. Tylenol and Ibuprofen can be helpful for the pain, fever and body aches that can be associated with a kidney infection. Please follow recommended dosing instructions on the bottle. FOLLOW UP 1. If your symptoms are not improving in 24-48 hours 2. If your symptoms are getting more severe 3. Any unusual vaginal discharge 4. Symptoms recur after you complete medication SEEK CARE IMMEDIATELY IF 1.You have shaking chills or temperature over 101.5 2. Severe flank pain 3. Persistent vomiting, unable to keep fluids or medicine down. 4. Worse despite medication. If you develop any new or worsening symptoms and need after hours care, please go to nearest ER and/or call 911. If you have additional concerns or develop a change in your condition between 8am-10pm, please call [facility] at [phone] to help navigate your care. [email or web address] Not available 12/14/2019 14:24:46 03/14/2020 [id number] WE CAME TO SEE Y OU TODAY FOR CONCERNS OF HEADACHE/BACKACHE AND CONCERN FOR UTI YOUR URINE LOOKS INFECTED, I AM STARTING YOU ON ANTIBIOTICS TODAY IF YOU GET WORSE IN THE ENXT 24 HOURS PLEASE GO TO THE ER , IF YOU ARE NOT IMPROVING IN THE NEXT 48 HOURS I WOULD ALSO RECCOMEND THE ER YOU REPORTED BLURRED VISION AND HEADACHE- YOU INDICATED THAT THIS IS TYPICAL WHEN YOU HAVE A UTI- IF THIS DOES NOT IMPROVE YOU NEED A HEAD CT TO BE COMPLETED IN THE EMERGENCY DEPARTMENT URINARY TRACT INFECTION INSTRUCTIONS BASIC INFORMATION Urinary tract infections(UTI) can involve any portion of the urinary tract. The most common presentation is a bladder infection/cystitis, which usually presents with urinary frequency, burning with urination, urgency, foul smelling cloudy urine and occasionally blood. Kidney infections are less frequent, but more serious, and present with fever, flank pain, malaise and sometimes shaking chills. UTI? s are common in women because of the female anatomy, and much less common in males. INSTRUCTIONS Drink plenty of fluid, water is best. Drinking fluids will help to flush the bacteria from your body. Urinate every 2-3 hours Wear cotton underwear and avoid Nylon, Spandex and Lycra which tend to trap moisture and thong underwear which may facilitate UTI? s . Avoid tub baths Avoid using Super Tampons Use only mild unscented soap to wash your genitals, such as Dove or Ivory, avoid heavily scented body washes. If you are sexually active urinate as soon as possible after intercourse. Yogurt and probiotics may help to establish a more healthy genital environment, and aid in prevention. MEDICATIONS 1.Antibiotics: Usually prescribed if you have a UTI, there are many different effective antibiotics available. It is important that you complete the course of antibiotics you are given. You should feel some improvement within 24-48 hours, if you do not it may be that the bacteria causing your infection is resistant to the prescribed medication. If a urine culture is obtained it will usually take at least 3-4 days to get the final result. 2. Anesthetic/Pain relievers: Phenazopyridine (Pyridium, Uribelle, AZO) is an anesthetic excreted in the urine. This medicine will turn your urine BRIGHT ORANGE! This is normal, and may stain your underwear can contacts. Take this medication as directed with food. 3. Tylenol and Ibuprofen can be helpful for the pain, fever and body aches that can be associated with a kidney infection. Please follow recommended dosing instructions on the bottle. FOLLOW UP 1. If your symptoms are not improving in 24-48 hours 2. If your symptoms are getting more severe 3. Any unusual vaginal discharge 4. Symptoms recur after you complete medication SEEK CARE IMMEDIATELY IF 1.You have shaking chills or temperature over 101.5 2. Severe flank pain 3. Persistent vomiting, unable to keep fluids or medicine down. 4. Worse despite medication. If you develop any new or worsening symptoms and need after hours care, please go to nearest ER and/or call 911. If you have additional concerns or develop a change in your condition between 8am-10pm, please call [facility] at [phone] to help navigate your care. [email or web address] Not available 03/14/2020 15:55:35 Reason for Referral None Reported. Results Created Date Observation Date Name Description Value Unit Range Abnormal Flag Note LastModifiedBy Organization Detail LastModifiedTime 12/14/19 20 12/14/2019 urina lysis , dipst ick Appearance cloudy Not Available Spr - [facility] [address] [place], [address], 12/14/2019 14:24:48 12/14/1912/14/2019 urina lysis , dipst ick Color yellow Not Available Spr - Home [address] [place], [address], 12/14/2019 14:24:48 12/14/1912/14/2019 urina lysis , dipst ick Glucose negati ve Not Available Spr - Home [address] [place], [address], 12/14/2019 14:24:48 12/14/1912/14/2019 urina lysis , dipst ick Bilirubin negati ve Not Available Spr - Home [address] [place], [address], 12/14/2019 14:24:48 12/14/19 20 12/14/2019 urina lysis , dipst ick Ketones NEG Not Available Spr - Home [address] [place], [address], 12/14/2019 14:24:48 12/14/19 20 12/14/2019 urina lysis , dipst ick Sp. [place] 1.020 Not Available Spr - Home [address] [place], [address], 12/14/2019 14:24:48 12/14/19 20 12/14/2019 urina lysis , dipst ick Blood + Not Available Spr - Home [address] [place], [address], 12/14/2019 14:24:48 12/14/19 20 12/14/2019 urina lysis , dipst ick pH 6.0 Not Available Spr - Home [address] [place], [address], 12/14/2019 14:24:48 12/14/19 20 12/14/2019 urina lysis , dipst ick Protein positi ve Not Available Spr - Home [address] [place], [address], 12/14/2019 14:24:48 12/14/19 20 12/14/2019 urina lysis , dipst ick Urobilirubin positi ve Not Available Spr - Home [address] [place], [address], 12/14/2019 14:24:48 12/14/1912/14/2019 urina lysis , dipst ick Nitrites + Not Available Spr - [facility] [address] [place], [address], 12/14/2019 14:24:48 12/14/19 20 12/14/2019 urina lysis , dipst ick Leukocytes +++ Not Available Spr - H ome [address], [place], [address], 12/14/2019 14:24:48 12/14/1912/14/2019 cultu re, urine specimen description CLEAN CATCH (URINE ) Not Available [facility] (Centralized Electronic Ordering - All Locations) Patient Can Go To The Location Of Their Choice, 12/16/2019 16:03:55 12/14/1912/14/2019 cultu re, urine special requests NONE Not Available [facility] (Centralized Electronic Ordering - All Locations) Patient Can Go To The Location Of Their Choice, 12/16/2019 16:03:55 12/14/1912/16/2019 cultu re, urine culture abnormal >100, 000 COL/M L ESCHE TAMEKA A COLI >100, 000 COL/M L ESCHE TAMEKA A COLI 2 Not Available [facility] (Centralized Electronic Ordering - All Locations) Patient Can Go To The Location Of Their Choice, 12/16/2019 16:03:55 12/14/1912/16/2019 cultu re, urine report status FINAL 2019 Not Available [facility] (Centralized Electronic Ordering - All Locations) Patient Can Go To The Location Of Their Choice, 12/16/2019 16:03:55 12/14/1912/16/2019 cultu re, urine organism ORGANI SM >100,0 00 COL/ML ESCHER ICHIA COLI Not Available [facility] (Centralized Electronic Ordering - All Locations) Patient Can Go To The Location Of Their Choice, 12/16/2019 16:03:55 12/14/1912/16/2019 cultu re, urine method METHOD MIN. INHIB. CONC. (MCG/M L) Not Available [facility] (Centralized Electronic Ordering - All Locations) Patient Can Go To The Location Of Their Choice, 12/16/2019 16:03:55 12/14/1912/16/2019 cultu re, urine ampicillin AMPICI LLIN SUSCEP TIBLE susceptib le Not Available [facility] (Centralized Electronic Ordering - All Locations) Patient Can Go To The Location Of Their Choice, 12/16/2019 16:03:55 12/14/1912/16/2019 cultu re, urine ampicillin/s ulbactam AMPICI LLIN/S ULBACT AM SUSCEP TIBLE susceptib le Not Available [facility] (Centralized Electronic Ordering - All Locations) Patient Can Go To The Location Of Their Choice, 12/16/2019 16:03:55 12/14/1912/16/2019 cultu re, urine amoxicillin/ clavulanic acid AMOXIC ILLIN/ CLAVUL AN SUSCEP TIBLE susceptib le Not Available [facility] (Centralized Electronic Ordering - All Locations) Patient Can Go To The Location Of Their Choice, 12/16/2019 16:03:55 12/14/1912/16/2019 cultu re, urine cefazolin CEFAZO ALFONZO SUSCEP TIBLE susceptib le Not Available [facility] (Centralized Electronic Ordering - All Locations) Patient Can Go To The Location Of Their Choice, 12/16/2019 16:03:55 12/14/1912/16/2019 cultu re, urine cefepime CEFEPI ME SUSCEP TIBLE susceptib le Not Available [facility] (Centralized Electronic Ordering - All Locations) Patient Can Go To The Location Of Their Choice, 12/16/2019 16:03:55 12/14/1912/16/2019 cultu re, urine ceftriaxone CEFTRI AXONE SUSCEP TIBLE susceptib le Not Available [facility] (Centralized Electronic Ordering - All Locations) Patient Can Go To The Location Of Their Choice, 12/16/2019 16:03:55 12/14/1912/16/2019 cultu re, urine ciprofloxaci n CIPROF LOXACI N SUSCEP TIBLE susceptib le Not Available [facility] (Centralized Electronic Ordering - All Locations) Patient Can Go To The Location Of Their Choice, 12/16/2019 16:03:55 12/14/1912/16/2019 cultu re, urine ertapenem ERTAPE NEM SUSCEP TIBLE susceptib le Not Available [facility] (Centralized Electronic Ordering - All Locations) Patient Can Go To The Location Of Their Choice, 12/16/2019 16:03:55 12/14/1912/16/2019 cultu re, urine gentamicin GENTAM ICIN SUSCEP TIBLE susceptib le Not Available [facility] (Centralized Electronic Ordering - All Locations) Patient Can Go To The Location Of Their Choice, 12/16/2019 16:03:55 12/14/1912/16/2019 cultu re, urine levofloxacin LEVOFL OXACIN SUSCEP TIBLE susceptib le Not Available [facility] (Centralized Electronic Ordering - All Locations) Patient Can Go To The Location Of Their Choice, 12/16/2019 16:03:55 12/14/1912/16/2019 cultu re, urine meropenem MEROPE NEM SUSCEP TIBLE susceptib le Not Available [facility] (Centralized Electronic Ordering - All Locations) Patient Can Go To The Location Of Their Choice, 12/16/2019 16:03:55 12/14/1912/16/2019 cultu re, urine nitrofuranto in NITROF URANTO IN SUSCEP TIBLE susceptib le Not Available [facility] (Centralized Electronic Ordering - All Locations) Patient Can Go To The Location Of Their Choice, 12/16/2019 16:03:55 12/14/1912/16/2019 cultu re, urine piperacillin /tazobactam PIPERA CILLIN /TAZOB AC SUSCEP TIBLE susceptib le Not Available [facility] (Centralized Electronic Ordering - All Locations) Patient Can Go To The Location Of Their Choice, 12/16/2019 16:03:55 12/14/1912/16/2019 cultu re, urine trimeth/sulf amethox TRIMET H/SULF AMETHO X SUSCEP TIBLE susceptib le Not Available [facility] (Centralized Electronic Ordering - All Locations) Patient Can Go To The Location Of Their Choice, 12/16/2019 16:03:55 12/14/1912/16/2019 cultu re, urine tetracycline TETRAC YCLINE SUSCEP TIBLE susceptib le Not Available [facility] (Centralized Electronic Ordering - All Locations) Patient Can Go To The Location Of Their Choice, 12/16/2019 16:03:55 12/14/1912/16/2019 cultu re, urine organism ORGANI SM >100,0 00 COL/ML ESCHER ICHIA COLI 2 Not Available [facility] (Centralized Electronic Ordering - All Locations) Patient Can Go To The Location Of Their Choice, 12/16/2019 16:03:55 12/14/1912/16/2019 cultu re, urine method METHOD MIN. INHIB. CONC. (MCG/M L) Not Available [facility] (Centralized Electronic Ordering - All Locations) Patient Can Go To The Location Of Their Choice, 12/16/2019 16:03:55 12/14/1912/16/2019 cultu re, urine ampicillin AMPICI LLIN RESIST ANT resistant Not Available [facility] (Centralized Electronic Ordering - All Locations) Patient Can Go To The Location Of Their Choice, 12/16/2019 16:03:55 12/14/1912/16/2019 cultu re, urine ampicillin/s ulbactam AMPICI LLIN/S ULBACT AM RESIST ANT resistant Not Available [facility] (Centralized Electronic Ordering - All Locations) Patient Can Go To The Location Of Their Choice, 12/16/2019 16:03:55 12/14/1912/16/2019 cultu re, urine amoxicillin/ clavulanic acid AMOXIC ILLIN/ CLAVUL AN SUSCEP TIBLE susceptib le Not Available [facility] (Centralized Electronic Ordering - All Locations) Patient Can Go To The Location Of Their Choice, 12/16/2019 16:03:55 12/14/1912/16/2019 cultu re, urine cefazolin CEFAZO ALFONZO RESIST ANT resistant Not Available [facility] (Centralized Electronic Ordering - All Locations) Patient Can Go To The Location Of Their Choice, 12/16/2019 16:03:55 12/14/1912/16/2019 cultu re, urine cefepime CEFEPI ME SUSCEP TIBLE susceptib le Not Available [facility] (Centralized Electronic Ordering - All Locations) Patient Can Go To The Location Of Their Choice, 12/16/2019 16:03:55 12/14/1912/16/2019 cultu re, urine ceftriaxone CEFTRI AXONE SUSCEP TIBLE susceptib le Not Available [facility] (Centralized Electronic Ordering - All Locations) Patient Can Go To The Location Of Their Choice, 12/16/2019 16:03:55 12/14/1912/16/2019 cultu re, urine ciprofloxaci n CIPROF LOXACI N SUSCEP TIBLE susceptib le Not Available [facility] (Centralized Electronic Ordering - All Locations) Patient Can Go To The Location Of Their Choice, 12/16/2019 16:03:55 12/14/1912/16/2019 cultu re, urine ertapenem ERTAPE NEM SUSCEP TIBLE susceptib le Not Available [facility] (Centralized Electronic Ordering - All Locations) Patient Can Go To The Location Of Their Choice, 12/16/2019 16:03:55 12/14/1912/16/2019 cultu re, urine gentamicin GENTAM ICIN SUSCEP TIBLE susceptib le Not Available [facility] (Centralized Electronic Ordering - All Locations) Patient Can Go To The Location Of Their Choice, 12/16/2019 16:03:55 12/14/1912/16/2019 cultu re, urine levofloxacin LEVOFL OXACIN SUSCEP TIBLE susceptib le Not Available [facility] (Centralized Electronic Ordering - All Locations) Patient Can Go To The Location Of Their Choice, 12/16/2019 16:03:55 12/14/1912/16/2019 cultu re, urine meropenem MEROPE NEM SUSCEP TIBLE susceptib le Not Available [facility] (Centralized Electronic Ordering - All Locations) Patient Can Go To The Location Of Their Choice, 12/16/2019 16:03:55 12/14/1912/16/2019 cultu re, urine nitrofuranto in NITROF URANTO IN SUSCEP TIBLE susceptib le Not Available [facility] (Centralized Electronic Ordering - All Locations) Patient Can Go To The Location Of Their Choice, 12/16/2019 16:03:55 12/14/1912/16/2019 cultu re, urine piperacillin /tazobactam PIPERA CILLIN /TAZOB AC SUSCEP TIBLE susceptib le Not Available [facility] (Centralized Electronic Ordering - All Locations) Patient Can Go To The Location Of Their Choice, 12/16/2019 16:03:55 12/14/1912/16/2019 cultu re, urine trimeth/sulf amethox TRIMET H/SULF AMETHO X SUSCEP TIBLE susceptib le Not Available [facility] (Centralized Electronic Ordering - All Locations) Patient Can Go To The Location Of Their Choice, 12/16/2019 16:03:55 12/14/1912/16/2019 cultu re, urine tetracycline TETRAC YCLINE SUSCEP TIBLE susceptib le Not Available [facility] (Centralized Electronic Ordering - All Locations) Patient Can Go To The Location Of Their Choice, [facility] 12/16/2019 16:03:55 03/14/1903/15/2020 cultu re, urine specimen description OTHER URINE Not Available [facility] (Centralized Electronic Ordering - All Locations) Patient Can Go To The Location Of Their Choice, [facility] 03/16/2020 12:34:09 03/14/19 21 03/15/2020 cultu re, urine special requests NONE Not Available [facility] (Centralized [facility] Ordering - All Locations) Patient Can Go To The Location Of Their Choice, [facility] 03/16/2020 12:34:09 03/14/19 21 03/16/2020 cultu re, urine culture Mixed bacter ial melissa, indica tive of urogen ital contam inatio n. Not Available [facility] (Centralized Electronic Ordering - All Locations) Patient Can Go To The Location Of Their Choice, [facility] 03/16/2020 12:34:09 03/14/19 21 03/16/2020 cultu re, urine report status FINAL 2020 Not Available [facility] (Centralized Electronic Ordering - All Locations) Patient Can Go To The Location Of Their Choice, [facility] 03/16/2020 12:34:09 03/14/1903/14/2020 urina lysis , dipst ick Appearance cloudy Not Available Spr - [facility] [address] [place], [address], 03/14/2020 15:42:12 03/14/19 21 03/14/2020 urina lysis , dipst ick Color yellow Not Available Spr - Home [address] [place], [address], 03/14/2020 15:42:12 03/14/19 21 03/14/2020 urina lysis , dipst ick Glucose negati ve Not Available Spr - Home [address] [place], [address], 03/14/2020 15:42:12 03/14/19 21 03/14/2020 urina lysis , dipst ick Bilirubin negati ve Not Available Spr - [address] [place], [address], 03/14/2020 15:42:12 03/14/19 21 03/14/2020 urina lysis , dipst ick Ketones NEG Not Available Spr - [place] [address] [place], [address], 03/14/2020 15:42:12 03/14/19 21 03/14/2020 urina lysis , dipst ick Sp. [place] 1.000 Not Available [facility] - [place] [address] [place], [address], 03/14/2020 15:42:12 03/14/1903/14/2020 urina lysis , dipst ick Blood +++ Not Available [facility] [place] [address] [place], [address], 03/14/2020 15:42:12 03/14/1903/14/2020 urina lysis , dipst ick pH 5 Not Available [facility] [place] [address] [place], [address], 03/14/2020 15:42:12 03/14/1903/14/2020 urina lysis , dipst ick Protein negati ve Not Available [facility] [place] [address] [place], [address], 03/14/2020 15:42:12 03/14/1903/14/2020 urina lysis , dipst ick Urobilirubin negati ve Not Available [facility] [place] [address] [place], [address], 03/14/2020 15:42:12 03/14/1903/14/2020 urina lysis , dipst ick Nitrites NEG Not Available [facility] [address] [place], [address], 03/14/2020 15:42:12 03/14/1903/14/2020 urina lysis , dipst ick Leukocytes +++ Not Available [facility] - [facility] [address], [place], [address], 03/14/2020 15:42:12 Result Notes None recorded. Procedures Surgical History Date Name Laterality Status Provider Name and Address Organization Details Recorded Time 02/24/20 Medication Review completed VIGNESH Humphries [address], [place], [address], [place] [facility] 02/23/2022 18:09:34 Imaging Results None recorded. Procedure Notes None recorded. Medical Equipment None Reported. Allergies Allergen ID Allergen Name Allergen Category Reaction Reaction Severity Criticality Documentation Date Start Date Code Code System Note Provider Name and Address Organization Details Recorded Time [id number] latex environme nt,medica tion Not available Not available Not available 12/14/2019 80184 91 RxNorm VIGNESH OAKLEY [address] [place], [address], [place] [facility] 14:19:42 Medications Name Sig Start Date Stop Date Status Note LastModified by Organization Details LastModified Time nitrofurant oin macrocrysta l 50 mg capsule TAKE TWO CAPSULES BY MOUTH 2 (two) times a day FOR 3 DAYS active Not Available Not Available No t Available ammonium lactate 12 % lotion APPLY TO THE AFFECTED AREA TOPICALLY DAILY AT BEDTIME 02/23 completed Not Available Not Available Not Available glipizide ER 10 mg tablet, extended release 24 hr TAKE 1 TABLET BY MOUTH two (2) times a day active Not Available Not Available No t Available meloxicam 15 mg tablet TAKE ONE TABLET BY MOUTH DAILY. TAKE WITH FOOD 02/23 completed Not Available Not Available Not Available Alcohol Pads USE TO TEST FINGER STICK BLOOD SUGAR ONCE A DAY 02/23 completed Not Available Not Available Not Available Doc-Q-Lace 100 mg capsule TAKE ONE CAPSULE BY MOUTH 2 (two) times a day NEEDED FOR CONSTIPAT ION 02/23 completed Not Available Not Available Not Available bacitracin 500 unit/gram topical ointment APPLY TO THE AFFECTED AREA TOPICALLY 3 (THREE) TIMES A DAY FOR 7 DAYS. APPLY TO affected SKIN 02/23 completed Not Available Not Available Not Available ciprofloxac in 250 mg tablet TAKE 1 TABLET BY MOUTH two (2) times a day FOR 5 DAYS 02/23 completed Not Available Not Available Not Available sulfamethox azole 800 mg-trimetho prim 160 mg tablet TAKE ONE TABLET BY MOUTH EVERY TWELVE HOURS WITH MEALS FOR 7 DAYS 02/23 completed Not Available Not Available Not Available tramadol 50 mg tablet TAKE 1 TABLET BY MOUTH EVERY TWELVE HOURS NEEDED FOR PAIN active Not Available Not Available No t Available methenamine hippurate 1 gram tablet TAKE 1 TABLET BY MOUTH ONCE DAILY active Not Available Not Available No t Available baclofen 10 mg tablet TAKE ONE TABLET BY MOUTH 3 (THREE) TIMES A DAY. TAKE WITH 5mg TABLETS FOR total OF 15mg 3 (THREE) TIMES A DAY active Not Available Not Available No t Available dexamethaso ne 2 mg tablet 02/23 completed Not Available Not Available Not Available bisacodyl 10 mg rectal suppository unwrap AND INSERT 1 SUPPOSITO RY RECTALLY ONCE DAILY NEEDED FOR CONSTIPAT ION active Not Available Not Available No t Available nystatin 100,000 unit/gram topical cream APPLY TO THE AFFECTED AREA TOPICALLY two (2) times a day active Not Available Not Available No t Available lidocaine 5 % topical patch APPLY 1 PATCH TOPICALLY ONCE DAILY 02/23 completed Not Available Not Available Not Available ibuprofen 400 mg tablet active Not Available Not Available Not Available hydrocortis one 2.5 % topical ointment APPLY IN A thin film TO affected SKIN AND RUB in gently AND completel y 3 (THREE) TIMES A DAY 02/23 completed Not Available Not Available Not Available ketoconazol e 2 % topical cream APPLY TO THE AFFECTED AREA TOPICALLY ONCE DAILY 02/23 completed Not Available Not Available Not Available ondansetron 4 mg disintegrat ing tablet unwrap AND PLACE 1 TABLET UNDER THE TONGUE TO DISSOLVE EVERY 8 HOURS NEEDED FOR NAUSEA AND FOR VOMITING active Not Available Not Available No t Available metformin ER 500 mg tablet,exte nded release 24 hr TAKE 2 TABLETS BY MOUTH EVERY MORNING AND TAKE ONE TABLET BY MOUTH EVERY EVENING active Not Available Not Available No t Available amoxicillin 875 mg-potassiu m clavulanate 125 mg tablet TAKE ONE TABLET BY MOUTH EVERY TWELVE HOURS FOR 7 DAYS 12/13 completed Not Available Not Available Not Available nabumetone 500 mg tablet TAKE ONE TABLET BY MOUTH 2 (two) times a day NEEDED FOR PAIN. TAKE WITH FOOD 02/23 completed Not Available Not Available Not Available amoxicillin 500 mg-potassiu m clavulanate 125 mg tablet TAKE 1 TABLET BY MOUTH EVERY TWELVE HOURS FOR 5 DAYS 02/23 completed Not Available Not Available Not Available tobramycin 0.3 %-dexametha sone 0.1 % eye drops,suspe nsion INSTILL 1 DROP IN EACH EYE 4 (FOUR) TIMES DAILY 02/23 completed Not Available Not Available Not Available oxycodone 5 mg tablet TAKE 1 TABLET BY MOUTH two (2) times a day NEEDED FOR moderate PAIN active Not Available Not Available No t Available C-1000 1,000 mg tablet TAKE 1 TABLET BY MOUTH ONCE DAILY 02/23 completed Not Available Not Available Not Available One Daily Multivitami n tablet TAKE ONE TABLET BY MOUTH DAILY active Not Available Not Available No t Available Eye Allergy Relief (naphazolin e-phenirami ne) 0.025 %-0.3 % drops INSTILL 1 DROP IN EACH EYE 4 (FOUR) TIMES DAILY 02/23 completed Not Available Not Available Not Available Vitamin D3 25 mcg (1,000 unit) capsule TAKE ONE CAPSULE BY MOUTH DAILY active Not Available Not Available No t Available nitrofurant oin monohydrate /macrocryst als 100 mg capsule TAKE ONE CAPSULE BY MOUTH EVERY TWELVE HOURS FOR 7 DAYS active Not Available Not Available No t Available Nyamyc 100,000 unit/gram topical powder APPLY TO THE AFFECTED AREA TOPICALLY two (2) times a day 02/23 completed Not Available Not Available Not Available Pain Relief Extra Strength (acetaminop hen) 500 mg tablet TAKE 2 TABLETS BY MOUTH 3 (THREE) TIMES A DAY NEEDED FOR PAIN active Not Available Not Available No t Available Januvia 100 mg tablet TAKE ONE TABLET BY MOUTH DAILY 02/23 completed Not Available Not Available Not Available FreeStyle Lite Meter kit USE TO TEST FINGER STICK BLOOD SUGAR DAILY 02/23 completed Not Available Not Available Not Available FreeStyle Lite Strips USE TO TEST FINGER STICK BLOOD SUGAR ONCE A DAY 02/23 completed Not Available Not Available Not Available Lantus Solostar U-100 Insulin 100 unit/mL (3 mL) subcutaneou s pen INJECT 10 UNITS SUBCUTANE OUSLY ONCE DAILY AT BEDTIME active Not Available Not Available No t Available diclofenac 1 % topical gel APPLY 2 GRAMS TOPICALLY TO KNEE 4 (FOUR) TIMES DAILY 02/23 completed Not Available Not Available Not Available Gavilax 17 gram/dose oral powder DISSOLVE 17gm IN WATER BEFORE taking DAILY NEEDED FOR CONSTIPAT ION FOR 7 DAYS 02/23 completed Not Available Not Available Not Available Comfort EZ Pen [place] 31 gauge x 5/16 Use daily to inject insulin for type 2 diabetes (E11.9). 02/23 completed Not Available Not Available Not Available lidocaine 5 % topical ointment wash hands thoroughl y after applicati on 02/23 completed Not Available Not Available Not Available Inject Ease Lancets 28 gauge USE TO TEST FINGER STICK BLOOD SUGAR ONCE A DAY 02/23 completed Not Available Not Available Not Available Jardiance 10 mg tablet TAKE ONE TABLET BY MOUTH DAILY IN THE MORNING active Not Available Not Available No t Available baclofen 5 mg tablet TAKE 1 TABLET BY MOUTH 3 (THREE) TIMES A DAY. TAKE WITH 10mg TABLETS FOR total OF 15mg 3 (THREE) TIMES A DAY active Not Available Not Available No t Available Droplet Micron Pen Needle 34 gauge x 9/64 Use daily to inject insulin for type 2 diabetes E11.9 02/23 completed Not Available Not Available Not Available Trulicity 3 mg/0.5 mL subcutaneou s pen injector INJECT THE CONTENT OF 1 pen UNDER THE SKIN EACH WEEK. rotate injection sites active Not Available Not Available No t Available Trulicity 4.5 mg/0.5 mL subcutaneou s pen injector INJECT THE CONTENT OF 1 pen UNDER THE SKIN EVERY WEEK. rotate injection sites active Not Available Not Available No t Available Vitals Date Recorded Respiratory rate Heart rate Oxygen saturation Oxygen saturation in Arterial blood by Pulse oximetry Body temperature Systolic blood pressure Diastolic blood pressure Provider Name and Address Organization Details Last Updated DateTime 0 14 /min 100 /min 99 % 99 % 96.2 [degF] 106 mm[Hg] 58 mm[Hg] Not Available [facility] 0 14:21:55 Date Recorded Body temperature Respiratory rate Oxygen saturation Oxygen saturation in Arterial blood by Pulse oximetry Heart rate Systolic blood pressure Diastolic blood pressure Provider Name and Address Organization Details Last Updated DateTime 1 99.3 [degF] 18 /min 98 % 98 % 102 /min 138 mm[Hg] 76 mm[Hg] Not Available [facility] 1 15:41:11 Date Recorded Respiratory rate Heart rate Body temperature Oxygen saturation Oxygen saturation in Arterial blood by Pulse oximetry Systolic blood pressure Diastolic blood pressure Provider Name and Address Organization Details Last Updated DateTime 2 18 /min 86 /min 98.7 [degF] 100 % 100 % 122 mm[Hg] 64 mm[Hg] Not Available [facility] 2 16:56:08 Social History Question Answer Notes LastModified by Organization D etails LastModified Time Has The Patient Seen Their PCP In The Past 6 Months? Yes [email or web address] Information not available 02/23/2022 Sex: Unknown Functional Status None recorded. Mental Status None recorded. Family History Nothing Reported. Medical History Condition Response Diabetes Y Coronary Artery Disease N Cancer N Stroke N Depression N COPD N Asthma N High Cholesterol N Pulmonary Embolism N Hypertension N Kidney Disease N Gynecological HistoryNo gynecological history recorded. Obstetrics History GPAL:G 0 P 0 0 0 0 Past Encounters Encounter ID Performer Location Encounter Start Date Encounter Closed Date Diagnosis/Indication Diagnosis SNOMED-CT Code Diagnosis ICD10 Code Diagnosis Note [id number] VIGNESH OAKLEY [facility] [address] [facility] [place] [address] 12/14/2019 14:17:04 12/25/2019 14:24:52 Urinary tract infectious disease 68017719 N39.0 [id number] MARY LOU ELIAS NP [facility] [address] [facility] [place] [address] 03/14/2020 15:03:33 03/19/2020 11:01:55 Urinary tract infectious disease 99347828 N39.0 [id number] VIGNESH Lloyd [facility] [address] [facility] [place] [address] 02/23/2022 16:46:30 02/24/2022 11:55:23 Suprapubic urinary catheter in situ 263780997 Z96.0 Abdominal pain 72877528 R10.9 Health Concerns Section Related Observation LastModified by Organization Detai ls LastModified Time None Recorded Concern Status LastModified by Organization Details LastModified Time None Recorded Advance Directives Directive None Recorded Payers Insurance Date Sequence Insurance Name Policy Number Policy Santamaria Covered Member ID Santamaria Member ID Guarantor Name 03/05/2022 1 [facility] (MEDICAID HMO) [id number] Tamia Cesar [id number] Noemi Cesar 03/14/2020 2 [facility] (MEDICAID HMO) [id number] Tamia Cesar [id number] Noemi Cesar 12/13/2019 1 *SELF PAY* Tamia Cesar [id number] Noemi Ramos 12/25/2019 1 [place] [facility] Tamia Cesar [id number] Noemi Cesar Notes Date Note Type Note Provider Name and Address Organization Details Recorded Time 12/14/2019 text/html 28 yo female wit h PMH of diabetes, sleep apnea, arnold chiari, spina bifida whop resents with complain of possible uti. Patient has hx of complicated UTIs with urosepsis and hospitalizations. Last UTI about 4 months ago. Patient reports pain and burning with urination as well as suprapubic pain X2d. She denies any fever, chills, nausea, vomiting, blood in the urine, flank pain. VIGNESH OAKLEY [address] [place], [address], [place] [facility] 12/25/2019 13:46:08 03/14/2020 text/html This is a 29-year-old female that is known to [facility] new to this provider. She has a medical history significant for Arnold-Chiari, spina bifida, she is a paraplegic she is diabetic and has frequent urinary tract infections. Her mother contacted [facility] to have her evaluated for urinary tract infection. The patient tells me that for the past week she has been having back pain, right side pain and blurred vision along with headaches. The patient and her mother told me that she often has these sorts of symptoms when she has a urinary tract infection. The patient's mother also says that she has been noting blood in her daughter's urine when she straight cathing her. It sounds as though they used to follow with urology but not continue to follow with them often. The patient's mother tells me that whenever her daughter is cold cough they always check her urine and if it is nothing there then there is a problem with her shunt. The patient's mother also believes that the back and side pain could be due to her daughter's mattress she tells me they are ordering a new 1 from [employer]. MARY LOU ELIAS NP [address], [place], [address], [place] [facility] 03/14/2020 17:09:22 02/23/2022 text/html 31 YO F new to provider and [facility] seen today at homePMH of spinal bifida, suprapubic catheter, DM, OSABeing seen today for pain around her catheterThis has been ongoing for months on and off per patientPain is described as mild, started again last couple of days, streeter snot seem to be worseningShe has trialled tylenol, ibuprofen, and narcotics for her pain and these have had no effect per patientShe had a BM today after a suppository and this had no effect on her pain. This was not diarrhea and no bloody nor black/tarryThere has always been some drainage around her suprapubic catheter site and some small amt of blood, all of this is normal for her and mother and pt report. Apparently urology and [facility] (who see's patient daily) are aware and have discussed w/ them that is normal for her.Urology has referred her back to PCP as they apparently do not believe her catheter is the issue.Today the reason the patient had an appt booked w/ our service was because a telehealth visit was missed earlier in the day d/t the power going out at the patient's PCP office it seems. They wanted her seen so they called us.Currently they deny any fever, chills, diffuse abd pain, NVD, bloody or black stools, catheter coming out, change to her drainage, lethargy, confusion, weakness, flank pain. No other reports sxs today. VIGNESH Humphries [address], [place], [address], [place] [facility] 02/23/2022 18:24:45 OBGyn Episode No OBEpisode recorded.
== END 2024-07-25 15:40 | disposition home or self-care (01) ==
LOC: HO.HUSH 15:17
PROVIDERS: PCP Internal Medicine; Visit Provider Urology
DX: N31.9 Neuromuscular dysfunction of bladder, unspecified (principal)
CPT/HCPCS: 51705; 99213; G2211

== ENCOUNTER → 2024-07-25 15:17 | Outpatient (BNVA) | payer OTHER, SELFPAY | PROVIDERS: PCP Internal Medicine; Visit Provider Urology | DX: N31.9 Neuromuscular dysfunction of bladder, unspecified (principal) | CPT/HCPCS: 51705; 99212 ==

== ENCOUNTER → 2024-08-23 15:26 | Outpatient (BNVA) | payer OTHER, SELFPAY | PROVIDERS: PCP Internal Medicine; Visit Provider Urology | DX: Z46.6 Encounter for fitting and adjustment of urinary device (principal); N31.9 Neuromuscular dysfunction of bladder, unspecified | CPT/HCPCS: 51705 ==

== ENCOUNTER → 2024-09-20 15:17 | Outpatient (BNVA) | payer OTHER, SELFPAY | PROVIDERS: PCP Internal Medicine; Visit Provider Urology | DX: Z46.6 Encounter for fitting and adjustment of urinary device (principal); N31.9 Neuromuscular dysfunction of bladder, unspecified | CPT/HCPCS: 51705 ==

== ENCOUNTER → 2024-10-23 14:50 | Outpatient (BNVA) | payer OTHER, SELFPAY | PROVIDERS: PCP Internal Medicine; Visit Provider Urology | DX: N31.9 Neuromuscular dysfunction of bladder, unspecified (principal) | CPT/HCPCS: 51705 ==

== ENCOUNTER → 2024-11-23 15:00 | Outpatient (BNVA) | payer OTHER, SELFPAY | PROVIDERS: PCP Internal Medicine; Visit Provider Urology | DX: Z46.6 Encounter for fitting and adjustment of urinary device (principal); N31.9 Neuromuscular dysfunction of bladder, unspecified | CPT/HCPCS: 51705 ==

== ENCOUNTER → 2024-12-21 14:42 | Outpatient (BNVA) | payer OTHER, SELFPAY | PROVIDERS: PCP Internal Medicine; Visit Provider Urology | DX: Z46.6 Encounter for fitting and adjustment of urinary device (principal); N31.9 Neuromuscular dysfunction of bladder, unspecified | CPT/HCPCS: 51705 ==

== ENCOUNTER → 2025-01-17 14:58 | Outpatient (BNVA) | payer OTHER, SELFPAY | PROVIDERS: PCP Internal Medicine; Visit Provider Urology | DX: Z46.6 Encounter for fitting and adjustment of urinary device (principal); N31.9 Neuromuscular dysfunction of bladder, unspecified; Z93.50 Unspecified cystostomy status | CPT/HCPCS: 51705 ==

== ENCOUNTER → 2025-02-13 15:01 | Outpatient (BNVA) | payer OTHER, SELFPAY | PROVIDERS: PCP Internal Medicine; Visit Provider Urology | DX: N31.9 Neuromuscular dysfunction of bladder, unspecified (principal) | CPT/HCPCS: 51705 ==